=== PATIENT | female | born 1960 | race Caucasian/White ===

== ENCOUNTER → 2016-05-17 | Outpatient (CLI) | payer BC | LOC: MW.CHENT 15:21 | PROVIDERS: ATTEND Otolaryngology | DX: J32.9 Chronic sinusitis, unspecified (principal) | CPT/HCPCS: 36415; 82785; 82787; 86003; 86317 ==

== ENCOUNTER → 2016-06-29 | Outpatient (CLI) | payer BC ==
--- NOTE | 2016-06-30 13:55 | CR ---
EXAM DATE: 06/29/16 PATIENT'S AGE: 56 Patient: JOANNE CURRY Facility: [place], [place] Site . Site : 1960 Study: XRay Chest [id number]/25/2017 1:19:01 PM Ordering Physician: Glen Barajas Final Report: INDICATION: Dyspnea, unspecified TECHNIQUE: Chest 2 views. COMPARISON: 11/26/11 FINDINGS: Cardiovascular and mediastinum: Heart size and vasculature are normal in caliber and appearance. Mediastinum is within normal limits. Lungs and pleural spaces: Lungs are clear. No sign of infiltrate or mass. No sign of pleural effusion. No pneumothorax. Bones and soft tissues: No significant findings. IMPRESSION: Unremarkable chest. Dictated by: Ameya Pagan MD @ 06/30/2016 11:05:32 (Electronic Signature) Report Signed by Proxy and Original Signed Document filed in the Medical Record. [email or web address]
== END | disposition home or self-care (01) ==
LOC: MW.CHOBGYN 13:07
PROVIDERS: ATTEND Nurse Practitioner Women's Health
DX: R06.00 Dyspnea, unspecified (principal)
CPT/HCPCS: 71020; 71020-26

== ENCOUNTER → 2016-07-02 | Outpatient (CLI) | payer BC ==
--- NOTE | 2016-07-04 16:44 | MR ---
EXAM DATE: 07/02/16 PATIENT'S AGE: 56 Patient: JOANNE CURRY Facility: [place], [place] Site Site : 1960 Study: MRI Spine Lumbar [id number]/28/2017 11:30:34 AM Ordering Physician: CLARITA DOTSON Final Report: Indication: Sacral pain. Comparison: None. Technique: Sagittal T1, T2, and STIR sequences. Axial T1 and T2 weighted sequences. Findings: Normal vertebral body alignment. No fractures. No vertebral body loss of height. No spondylolisthesis. No ligamentous injury. Normal marrow signal. Normal conus terminates at T12-L1. T11-12, T12-L1 and L1-2: No spinal canal or neural foraminal narrowing. L2-3: No spinal canal or neural foraminal narrowing. L3-4: No spinal canal or neural foraminal narrowing. L4-5: Disc degeneration with posterior disc bulge. Flattening of the ventral thecal sac. No narrowing of spinal canal. No neural foraminal narrowing. Mild bilateral facet arthropathy. Small bilateral facet joint effusions. L5-S1: Disk degeneration with diffuse disc bulge. Superimposed shallow right paracentral to foraminal disk herniation and a right subarticular disc extrusion measuring approximately 4 mm in diameter with 3 mm of cephalad migration. No narrowing of spinal canal. The disc herniation contacts but does not frankly impinge upon the traversing right S1 nerve root. Mild narrowing of the bilateral neural foramina. Mild bilateral facet arthropathy. Normal paraspinal soft tissues. Additional sequences of the sacrum and coccyx in the axial plane demonstrates no gross fracture or osseous abnormality. No edema or inflammation within the presacral space. Impression: 1. Normal alignment. No fractures. No spondylolisthesis. 2. Lumbar spondylosis 3. At L4-5, posterior disc bulge. Otherwise, no spinal canal or neural foraminal narrowing. Small bilateral facet joint effusions 4. At L5-S1, disk degeneration with diffuse disc bulge. Shallow right paracentral-foraminal disk herniation and a small right subarticular disc extrusion. No narrowing of the spinal canal. Disc herniation contacts but does not impinge upon the traversing right S1 nerve root. Mild narrowing of the bilateral neural foraminal Dictated by Jair Eubanks MD @ Jul 03 2016 8:17AM (Electronic Signature) Report Signed by Proxy. MTDD
== END ==
LOC: MW.MRI 10:41
PROVIDERS: ATTEND Nurse Practitioner Women's Health
DX: M53.3 Sacrococcygeal disorders, not elsewhere classified (principal); R60.0 Localized edema
CPT/HCPCS: 72148; 72148-26

== ENCOUNTER 2019-04-05 17:53 | Emergency (ER) | payer BC ==
[2019-04-05] MEDS ORDERED: Sodium Chloride 0.9% 1,000 ML IV ONE (18:41)
[2019-04-05] MEDS ORDERED: Ondansetron 4 MG/2 ML SDV IVPUSH ONE (18:53)
--- NOTE | 2019-04-05 18:53 | EDM.PDOC ---
ED HPI GENERAL MEDICAL PROBLEM - General Chief Complaint: Gastrointestinal Problem Stated Complaint: vomiting Time Seen by Provider: 04/05/19 18:40 Source of Information: Reports: Patient History Limitations: Reports: No Limitations - History of Present Illness INITIAL COMMENTS - FREE TEXT/NARRATIVE: HISTORY AND PHYSICAL: History of present illness: Patient is a 59-year-old female who presents to the emergency room with complaints of nausea and vomiting x24 hours. She states last evening she started to have several bouts of vomiting and now has some generalized abdominal pain from retching. She mentions concerns as she is a type II diabetic and is concerned that her sugars are off. Patient denies any fever, chills, headache, change in vision, syncope or near syncope. Denies any chest pain, back pain, shortness of breath or cough. Denies any abdominal pain, nausea , vomiting, diarrhea, constipation or dysuria. Has not noted any blood in urine or stool. Patient has been eating and drinking appropriately. Review of systems: As per history of present illness and below otherwise all systems reviewed and negative. Past medical history: As per history of present illness and as reviewed below otherwise noncontributory. Surgical history: As per history of present illness and as reviewed below otherwise noncontributory. Social history: See social history for further information Family history: As per history of present illness and as reviewed below otherwise noncontributory. Physical exam: General: Well-developed and well-nourished 59-year-old female. Alert and oriented. Nontoxic-appearing and in no acute distress. HEENT: Atraumatic, normocephalic, pupils equal and reactive bilaterally, negative for conjunctival pallor or scleral icterus, mucous membranes moist, TMs normal bilaterally, throat clear, neck supple, nontender, trachea midline. No drooling or trismus noted. No meningeal signs. No hot potato voice noted. Lungs: Clear to auscultation, breath sounds equal bilaterally, chest nontender. Heart: S1S2, regular rate and rhythm without overt murmur Abdomen: Soft, nondistended, East, nontender. Negative for masses or hepatosplenomegaly. Negative for costovertebral tenderness. Pelvis: Stable nontender. Skin: Intact, warm, dry. No lesions or rashes noted. Extremities: Atraumatic, moves all extremities per self without difficulty or deficits, negative for cords or calf pain. Neurovascular unremarkable. Neuro: Awake, alert, oriented. Cranial nerves II through XII unremarkable. Cerebellum unremarkable. Motor and sensory unremarkable throughout. Exam nonfocal. Notes: She does have a slight leukocytosis. She states she does not have abdominal pain unless she is retching. She does still complain of some nausea. CT scan will be obtained. EKG was obtained as some of her medications does cause some QT prolongation with the antiemetics. CT is unremarkable. Patient does request something for home for her nausea as she is concerned it may return. I did make her aware of the leukocytosis without cause. We discussed signs and symptoms that would prompt her to return to the emergency room. She voices understanding and states she is comfortable being discharged. Supportive care measures were reviewed and discussed. Voices understanding and is agreeable to plan of care. Denies any further questions or concerns at this time. Diagnostics: CBC, CMP, UA, CT abdomen and pelvis, lipase Therapeutics: IV fluid, Zofran, Ativan Prescription: Phenergan suppository (#6) Impression: Nausea and vomiting Plan: 1. Gulf diet over the next 24 to 72 hours, advance as tolerated. Make sure you are drinking plenty of fluids to prevent dehydration. You can use the Phenergan suppositories 1 every 8 hours as needed. This medication may cause drowsiness so do not take it while driving her needing to be functioning outside of the house. 2. You can alternate Tylenol and ibuprofen as needed for pain. 3. As we discussed your labs and imaging were normal with the exception of a slightly elevated white count which is likely due to a stress response (not infection or illness). But if your abdominal pain should worsen, you develop fever, or new symptoms develop I do want you to follow-up with primary care or return to the ED as we discussed. Definitive disposition and diagnosis as appropriate pending reevaluation and review of above. Abdomen Pain Score (Numeric/FACES): 5 - Related Data Allergies Allergy/AdvReac Type Severity Reaction Status Date / Time Penicillins Allergy Rash Verified 04/05/19 18:23 morphine Allergy Itching Uncoded 04/05/19 18:23 Home Meds: Home Meds Aspirin [Adult Low Dose Aspirin EC] 81 mg PO DAILY 07/06/14 [History] Cholecalciferol (Vitamin D3) [Vitamin D3] 2 tab PO DAILY 07/06/14 [History] Enalapril Maleate 20 mg PO DAILY 07/06/14 [History] Fluticasone Furoate [Veramyst] 1 spray NASBOTH DAILY 07/06/14 [History] Timolol Maleate 1 drop EYEBOTH BID 07/06/14 [History] Potassium Chloride 10 meq PO DAILY 07/22/14 [History] Zolpidem [Ambien] 10 mg PO BEDTIME 07/22/14 [History] Acetaminophen [Tylenol] 325 mg PO NOW 11/15/15 [History] Amitriptyline [Elavil] 50 mg PO ONETIME 11/15/15 [History] Calcium Carbonate [Calcium] 600 mg PO DAILY 11/15/15 [History] Cyanocobalamin/FA/Pyridoxine [Folbic Tablet] 1 tab PO DAILY 11/15/15 [History] Escitalopram [Lexapro] 20 mg PO DAILY 11/15/15 [History] Magnesium Oxide 400 mg PO DAILY 11/15/15 [History] [place]-3/DHA/Epa/Fish Oil [Fish Oil] 1,500 mg PO DAILY 11/15/15 [History] Vitamin E 400 unit PO DAILY 11/15/15 [History] Fluticasone Propionate 9.9 ml NS DAILY 04/05/19 [History] Insulin Glarg,Human.Rec.Analog [Lantus] 44 unit SUBCUT DAILY 04/05/19 [History] L.acidoph,Paracasei, B.lactis [Probiotic] 1 each PO DAILY 04/05/19 [History] Magnesium Glycinate [Mag Glycinate] 200 mg PO BID 04/05/19 [History] Melatonin [Melatin] 3 mg PO DAILY 04/05/19 [History] Montelukast [Singulair] 20 mg PO DAILY 04/05/19 [History] Multivitamin [Multi-Day Vitamins] 1 tab PO DAILY 04/05/19 [History] Rosuvastatin [Crestor] 20 mg PO DAILY 04/05/19 [History] Past Medical History HEENT History: Reports: None Cardiovascular History: Reports: High Cholesterol, Hypertension Respiratory History: Reports: Other (See Below) Other Respiratory History: Lung biopsy Gastrointestinal History: Reports: None Genitourinary History: Reports: None 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: Reports: Musculoskeletal History: Reports: None Neurological History: Reports: None Psychiatric History: Reports: Anxiety Endocrine/Metabolic History: Reports: Diabetes, Type II Hematologic History: Reports: None Immunologic History: Reports: None Oncologic (Cancer) History: Reports: None Dermatologic History: Reports: None - Infectious Disease History Infectious Disease History: Reports: Chicken Pox, Measles, Mumps - Past Surgical History Head Surgeries/Procedures: Reports: None HEENT Surgical History: Reports: None GI Surgical History: Reports: Appendectomy, Other (See Below) Social & Family History - Family History Family Medical History: Noncontributory - Tobacco Use Smoking Status *Q: Never Smoker - Recreational Drug Use Recreational Drug Use: No ED ROS GENERAL - Review of Systems Review Of Systems: Comprehensive ROS is negative, except as noted in HPI. ED EXAM, RENAL/ - Physical Exam Exam: See Below (See dictation) Course - Vital Signs Last Recorded V/S: Last Vital Signs Temp 99.7 F 04/05/19 18:23 Pulse 66 04/05/19 19:45 Resp 20 04/05/19 19:45 BP 171/70 H 04/05/19 19:45 Pulse Ox 100 04/05/19 19:45 - Orders/Labs/Meds Orders: Active Orders 24 hr Category Date Time Status EKG Documentation Completion [RC] STAT Care 04/05/19 20:16 Active Sodium Chloride 0.9% [Normal Saline] 1,000 ml Med 04/05/19 18:41 Active IV STAT Medication Orders Sodium Chloride (Normal Saline) 1,000 mls @ 150 mls/hr IV STAT ONE Stop: 04/06/19 01:20 Last Admin: 04/05/19 18:53 Dose: 150 mls/hr Labs: Laboratory Tests 04/05/19 04/05/19 04/05/19 Range/Units 18:31 18:59 18:59 WBC 12.64 H (4.0-11.0) K/uL RBC 4.61 (4.30-5.90) M/uL Hgb 13.8 (12.0-16.0) g/dL Hct 39.7 (36.0-46.0) % MCV 86.1 (80.0-98.0) fL MCH 29.9 (27.0-32.0) pg MCHC 34.8 (31.0-37.0) g/dL RDW Std Deviation 46.4 (28.0-62.0) fl RDW Coeff of Travis 15 (11.0-15.0) % Plt Count 276 (150-400) K/uL MPV 10.00 (7.40-12.00) fL Neut % (Auto) 81.0 H (48.0-80.0) % Lymph % (Auto) 13.7 L (16.0-40.0) % [place] % (Auto) 5.1 (0.0-15.0) % Eos % (Auto) 0.0 (0.0-7.0) % Baso % (Auto) 0.2 (0.0-1.5) % Neut # (Auto) 10.2 H (1.4-5.7) K/uL Lymph # (Auto) 1.7 (0.6-2.4) K/uL [place] # (Auto) 0.7 (0.0-0.8) K/uL Eos # (Auto) 0.0 (0.0-0.7) K/uL Baso # (Auto) 0.0 (0.0-0.1) K/uL Nucleated RBC % 0.0 /100WBC Nucleated RBCs # 0 K/uL Sodium 138 (136-145) mmol/L Potassium 3.7 (3.5-5.1) mmol/L Chloride 101 (98-107) mmol/L Carbon Dioxide 25.9 (21.0-32.0) mmol/L BUN 15 (7.0-18.0) mg/dL Creatinine 0.8 (0.6-1.0) mg/dL Est Cr Clr Drug Dosing 59.15 mL/min Estimated GFR (MDRD) > 60.0 ml/min Glucose 150 H (74-106) mg/dL POC Glucose 144 H (60-110) mg/dL Calcium 9.3 (8.5-10.1) mg/dL Total Bilirubin 0.4 (0.2-1.0) mg/dL AST 20 (15-37) IU/L ALT 39 (14-63) IU/L Alkaline Phosphatase 105 (46-116) U/L Total Protein 7.7 (6.4-8.2) g/dL Albumin 3.9 (3.4-5.0) g/dL Globulin 3.8 (2.6-4.0) g/dL Albumin/Globulin Ratio 1.0 (0.9-1.6) Lipase 86 (73-393) U/L Urine Color Urine Appearance Urine pH (5.0-8.0) Ur Specific [place] (1.001-1.035) Urine Protein (NEGATIVE) mg/dL Urine Glucose (UA) (NEGATIVE) mg/dL Urine Ketones (NEGATIVE) mg/dL Urine Occult Blood (NEGATIVE) Urine Nitrite (NEGATIVE) Urine Bilirubin (NEGATIVE) Urine Urobilinogen (<2.0) EU/dL Ur Leukocyte Esterase (NEGATIVE) Urine RBC (0-2/HPF) Urine WBC (0-5/HPF) Ur Epithelial Cells (NONE-FEW) Urine Bacteria (NEGATIVE) 04/05/19 Range/Units 19:45 WBC (4.0-11.0) K/uL RBC (4.30-5.90) M/uL Hgb (12.0-16.0) g/dL Hct (36.0-46.0) % MCV (80.0-98.0) fL MCH (27.0-32.0) pg MCHC (31.0-37.0) g/dL RDW Std Deviation (28.0-62.0) fl RDW Coeff of Travis (11.0-15.0) % Plt Count (150-400) K/uL MPV (7.40-12.00) fL Neut % (Auto) (48.0-80.0) % Lymph % (Auto) (16.0-40.0) % [place] % (Auto) (0.0-15.0) % Eos % (Auto) (0.0-7.0) % Baso % (Auto) (0.0-1.5) % Neut # (Auto) (1.4-5.7) K/uL Lymph # (Auto) (0.6-2.4) K/uL [place] # (Auto) (0.0-0.8) K/uL Eos # (Auto) (0.0-0.7) K/uL Baso # (Auto) (0.0-0.1) K/uL Nucleated RBC % /100WBC Nucleated RBCs # K/uL Sodium (136-145) mmol/L Potassium (3.5-5.1) mmol/L Chloride (98-107) mmol/L Carbon Dioxide (21.0-32.0) mmol/L BUN (7.0-18.0) mg/dL Creatinine (0.6-1.0) mg/dL Est Cr Clr Drug Dosing mL/min Estimated GFR (MDRD) ml/min Glucose (74-106) mg/dL POC Glucose (60-110) mg/dL Calcium (8.5-10.1) mg/dL Total Bilirubin (0.2-1.0) mg/dL AST (15-37) IU/L ALT (14-63) IU/L Alkaline Phosphatase (46-116) U/L Total Protein (6.4-8.2) g/dL Albumin (3.4-5.0) g/dL Globulin (2.6-4.0) g/dL Albumin/Globulin Ratio (0.9-1.6) Lipase (73-393) U/L Urine Color YELLOW Urine Appearance CLEAR Urine pH 7.0 (5.0-8.0) Ur Specific [place] 1.015 (1.001-1.035) Urine Protein 30 H (NEGATIVE) mg/dL Urine Glucose (UA) NEGATIVE (NEGATIVE) mg/dL Urine Ketones 40 H (NEGATIVE) mg/dL Urine Occult Blood NEGATIVE (NEGATIVE) Urine Nitrite NEGATIVE (NEGATIVE) Urine Bilirubin NEGATIVE (NEGATIVE) Urine Urobilinogen 0.2 (<2.0) EU/dL Ur Leukocyte Esterase NEGATIVE (NEGATIVE) Urine RBC 0-3 (0-2/HPF) Urine WBC 0-3 (0-5/HPF) Ur Epithelial Cells RARE (NONE-FEW) Urine Bacteria RARE (NEGATIVE) Meds: Medications Generic Name Dose Route Start Last Admin Trade Name Sveta PRN Reason Stop Dose Admin Sodium Chloride 1,000 mls @ 150 mls/hr 04/05/19 18:41 04/05/19 18:53 Normal Saline IV 04/06/19 01:20 150 mls/hr STAT ONE Administration Discontinued Medications Generic Name Dose Route Start Last Admin Trade Name Sveta PRN Reason Stop Dose Admin Iopamidol 100 ml 04/05/19 20:30 04/05/19 20:31 Isovue Multipack-370 (76%) IVPUSH 04/05/19 20:31 100 ml ONETIME ONE Administration Lorazepam 1 mg 04/05/19 21:07 Ativan IVPUSH 04/05/19 21:08 ONETIME ONE Ondansetron HCl 4 mg 04/05/19 18:53 04/05/19 18:58 Zofran IVPUSH 04/05/19 18:54 4 mg ONETIME ONE Administration Promethazine HCl 25 mg 04/05/19 21:03 Phenergan IM 04/05/19 21:04 ONETIME ONE Departure - Departure Time of Disposition: 21:16 Disposition: Home, Self-Care 01 Clinical Impression: Nausea and vomiting Qualifiers: Vomiting type: unspecified Vomiting Intractability: non-intractable Qualified Code(s): R11.2 - Nausea with vomiting, unspecified - Discharge Information Instructions: Nausea and Vomiting, Adult, Mh[place]-[id number] Referrals: Fallon Wagner DIVIDING MACHINE OPERATOR HELPER [Primary Care Provider] - Forms: ED Department Discharge Additional Instructions: The following information is given to patients seen in the emergency department who are being discharged to home. This information is to outline your options for follow-up care. We provide all patients seen in our emergency department with a follow-up referral. The need for follow-up, as well as the timing and circumstances, are variable depending upon the specifics of your emergency department visit. If you don't have a primary care physician on staff, we will provide you with a referral. We always advise you to contact your personal physician following an emergency department visit to inform them of the circumstance of the visit and for follow-up with them and/or the need for any referrals to a consulting specialist. The emergency department will also refer you to a specialist when appropriate. This referral assures that you have the opportunity for follow-up care with a specialist. All of these measure are taken in an effort to provide you with optimal care, which includes your follow-up. Under all circumstances we always encourage you to contact your private physician who remains a resource for coordinating your care. When calling for follow-up care, please make the office aware that this follow-up is from your recent emergency room visit. If for any reason you are refused follow-up, please contact the [facility] Emergency Department at and asked to speak to the emergency department charge nurse. [facility] Primary [facility] [address] [place] [id number] [facility] [address] [place] [address] 1. Gulf diet over the next 24 to 72 hours, advance as tolerated. Make sure you are drinking plenty of fluids to prevent dehydration. You can use the Phenergan suppositories 1 every 8 hours as needed. This medication may cause drowsiness so do not take it while driving her needing to be functioning outside of the house. 2. You can alternate Tylenol and ibuprofen as needed for pain. 3. As we discussed your labs and imaging were normal with the exception of a slightly elevated white count which is likely due to a stress response (not infection or illness). But if your abdominal pain should worsen, you develop fever, or new symptoms develop I do want you to follow-up with primary care or return to the ED as we discussed. Sepsis Event Note - Evaluation Sepsis Screening Result: No Definite Risk - Focused Exam Vital Signs: Vital Signs Temp Pulse Resp BP Pulse Ox 04/05/19 19:45 66 20 171/70 H 100 04/05/19 18:23 99.7 F 64 16 172/64 H 97 Date Exam was Performed: 04/05/19 Time Exam was Performed: 21:29 - My Orders Last 24 Hours: My Active Orders 04/05/19 18:41 Sodium Chloride 0.9% [Normal Saline] 1,000 ml IV STAT 04/05/19 20:16 EKG Documentation Completion [RC] STAT - Assessment/Plan Last 24 Hours: My Active Orders 04/05/19 18:41 Sodium Chloride 0.9% [Normal Saline] 1,000 ml IV STAT 04/05/19 20:16 EKG Documentation Completion [RC] STAT
[2019-04-05 19:46] VITALS: BP 171/70; PULSE 66
[2019-04-05 19:46] LABS: BLOOD UREA NITROGEN,BUN 15 mg/dL (7.0-18.0); CARBON DIOXIDE,CO2 25.9 mmol/L (21.0-32.0); CHLORIDE,CL 101 mmol/L (98-107); GLUCOSE RANDOM 150 mg/dL (74-106); LIPASE 86 U/L (73-393); POTASSIUM,K 3.7 mmol/L (3.5-5.1); SODIUM,NA 138 mmol/L (136-145)
[2019-04-05] MEDS ORDERED: Iopamidol 755 MG/ML 200 ML Multipack Bottle IVPUSH ONE (20:30)
--- NOTE | 2019-04-05 21:02 | CT ---
CT abdomen and pelvis Technique: Multiple axial sections were obtained from above the dome of the diaphragm inferiorly through the pubic symphysis. Intravenous contrast was utilized. No oral contrast has been given. Findings: Visualized lung bases show nothing acute. Liver contains no focal parenchymal abnormality. Small hiatal hernia is noted. Prior gastric surgery is noted. Spleen appears within normal limits. Calcified gallstone is seen within the gallbladder measuring 6.8 mm. Pancreas appears within normal limits. Adrenal glands show no nodule. Aorta shows no aneurysm. No retroperitoneal adenopathy or mesenteric abnormalities are seen. No pelvic mass or adenopathy is seen. No free fluid or inflammatory change is appreciated. Appendix is not seen with certainty. Bone window settings were reviewed which shows scattered degenerative change throughout the spine. No acute osseous finding is appreciated. Impression: 1. Findings as described above. 2. Nothing acute is seen on CT study of the abdomen and pelvis. Diagnostic code #2 Study was dictated in [place] Standard Time
[2019-04-05] MEDS ORDERED: Promethazine 25 MG/ML SDV IM ONE (21:03)
[2019-04-05] MEDS ORDERED: LORazepam 2 MG/ML SDV IVPUSH ONE (21:07)
== END 2019-04-05 21:44 | disposition home or self-care (01) ==
LOC: MW.ED 17:53
DX: R11.2 Nausea with vomiting, unspecified (principal); E11.9 Type 2 diabetes mellitus without complications; I10 Essential (primary) hypertension; E78.00 Pure hypercholesterolemia, unspecified; F41.9 Anxiety disorder, unspecified; Z79.4 Long term (current) use of insulin; Z79.82 Long term (current) use of aspirin; Z79.899 Other long term (current) drug therapy; Z88.0 Allergy status to penicillin; Z88.5 Allergy status to narcotic agent
CPT/HCPCS: 36415; 74177; 80053; 81001; 82962; 83690; 85025; 87804; 96361; 96374; 96375; 99284; J2060; J2405; J7030; Q9967; 93005

== ENCOUNTER 2019-11-17 11:38 | Emergency (ER) | payer BC, OTHER ==
[2019-11-17] MEDS ORDERED: Ondansetron 4 MG/2 ML SDV IVPUSH ONE (12:00)
[2019-11-17] MEDS ORDERED: Sodium Chloride 0.9% 2.5 ML Syringe FLUSH PRN (12:00)
[2019-11-17] MEDS ORDERED: Sodium Chloride 0.9% 1,000 ML IV ONE (12:00)
[2019-11-17] MEDS ORDERED: Sodium Chloride 0.9% 10 ML Syringe FLUSH PRN (12:00)
--- NOTE | 2019-11-17 12:04 | EDM.PDOC ---
ED HPI GENERAL MEDICAL PROBLEM - General Chief Complaint: Gastrointestinal Problem Stated Complaint: FEVER/VOMITING Time Seen by Provider: 11/17/19 11:45 Source of Information: Reports: Patient - History of Present Illness INITIAL COMMENTS - FREE TEXT/NARRATIVE: History of present illness: 59-year-old female presenting with nausea and fevers for the last 3 days. T-max 101. She has been taking Tylenol and ibuprofen alternating to try to control her fever. However she has been having some difficulty keeping them down and she has been so nauseated and having dry heaves. No recent vomiting though she was vomiting previously. Prior to 3 days ago she had been feeling fine. She did have a coronavirus swab done 5 days ago which was negative just because she wanted to, not because she was having any symptoms or any sick exposures or contacts. She has not noticed any when she has been in contact with having been ill and she reports that she pretty much stays at home and has not been going out anywhere. Review of systems: As per history of present illness and below otherwise all systems reviewed and negative. Past medical history: As per history of present illness and as reviewed below otherwise noncontributory. Sarcoidosis, hypertension, diabetes, cholesterol Surgical history: As per history of present illness and as reviewed below otherwise noncontributory. Social history: No reported history of drug or alcohol abuse. No smoking Family history: As per history of present illness and as reviewed below otherwise noncontributory. Physical exam: GEN: no acute distress, well appearing HEENT: Atraumatic, normocephalic, mucous membranes moist, mild pharyngeal erythema, no pharyngeal or tonsillar enlargement or exudate. Neck: supple, nontender, trachea midline. No lymphadenopathy Lungs: No respiratory distress. Heart: RRR Abdomen: Soft, nondistended, nontender in all 4 quadrants. No rebound or guarding. Back: nontender Extremities: Atraumatic. Neurovascularly intact. Neuro: Awake, alert, oriented. Neuro Exam nonfocal. Skin: warm, dry, no lesions Diagnostics: Labs, x-ray, EKG, UA, strep swab, COVID swab Therapeutics: IV fluids, magnesium, Zofran, Reglan, Benadryl Definitive disposition and diagnosis as appropriate pending reevaluation and review of above. - Related Data Allergies Allergy/AdvReac Type Severity Reaction Status Date / Time Penicillins Allergy Rash Verified 11/17/19 11:54 morphine Allergy Itching Uncoded 11/17/19 11:54 Home Meds: Home Meds Aspirin [Adult Low Dose Aspirin EC] 81 mg PO DAILY 07/06/14 [History] Cholecalciferol (Vitamin D3) [Vitamin D3] 2 tab PO DAILY 07/06/14 [History] Enalapril Maleate 20 mg PO DAILY 07/06/14 [History] Timolol Maleate 1 drop EYEBOTH BID 07/06/14 [History] Potassium Chloride 10 meq PO DAILY 07/22/14 [History] Zolpidem [Ambien] 10 mg PO BEDTIME 07/22/14 [History] Acetaminophen [Tylenol] 325 mg PO NOW 11/15/15 [History] Amitriptyline [Elavil] 50 mg PO ONETIME 11/15/15 [History] Calcium Carbonate [Calcium] 600 mg PO DAILY 11/15/15 [History] Cyanocobalamin/FA/Pyridoxine [Folbic Tablet] 1 tab PO DAILY 11/15/15 [History] Escitalopram [Lexapro] 20 mg PO DAILY 11/15/15 [History] Magnesium Oxide 400 mg PO DAILY 11/15/15 [History] Adams-3/DHA/Epa/Fish Oil [Fish Oil] 1,500 mg PO DAILY 11/15/15 [History] Vitamin E 400 unit PO DAILY 11/15/15 [History] Fluticasone Propionate 9.9 ml NS DAILY 04/05/19 [History] Insulin Glarg,Human.Rec.Analog [Lantus] 30 unit SUBCUT DAILY 04/05/19 [History] L.acidoph,Paracasei, B.lactis [Probiotic] 1 each PO DAILY 04/05/19 [History] Magnesium Glycinate [Mag Glycinate] 200 mg PO BID 04/05/19 [History] Melatonin [Melatin] 3 mg PO DAILY 04/05/19 [History] Montelukast [Singulair] 20 mg PO DAILY 04/05/19 [History] Multivitamin [Multi-Day Vitamins] 1 tab PO DAILY 04/05/19 [History] Rosuvastatin [Crestor] 20 mg PO DAILY 04/05/19 [History] Azelastine [Astelin Nasal Soln] 1 inhalation DESTINY BID 11/17/19 [History] Magnesium Glycinate [Mag Glycinate] 200 mg PO DAILY 11/17/19 [History] Metoclopramide HCl [Reglan] 10 mg PO Q8HR PRN #15 tablet 11/17/19 [Rx] Ozempic 0.5 mg SQ WEEKLY 11/17/19 [History] Past Medical History HEENT History: Reports: None Cardiovascular History: Reports: High Cholesterol, Hypertension Respiratory History: Reports: Other (See Below) Other Respiratory History: Lung biopsy Gastrointestinal History: Reports: None Genitourinary History: Reports: None [employer] History: Reports: Musculoskeletal History: Reports: None Neurological History: Reports: None Psychiatric History: Reports: Anxiety Endocrine/Metabolic History: Reports: Diabetes, Type II Hematologic History: Reports: None Immunologic History: Reports: None Oncologic (Cancer) History: Reports: None Dermatologic History: Reports: None - Infectious Disease History Infectious Disease History: Reports: Chicken Pox, Mumps - Past Surgical History Head Surgeries/Procedures: Reports: None HEENT Surgical History: Reports: None Cardiovascular Surgical History: Reports: None Respiratory Surgical History: Reports: None GI Surgical History: Reports: Appendectomy, Other (See Below) Endocrine Surgical History: Reports: None Neurological Surgical History: Reports: None Dermatological Surgical History: Reports: None Social & Family History - Family History Family Medical History: Noncontributory - Tobacco Use Smoking Status *Q: Never Smoker Second Hand Smoke Exposure: No - Caffeine Use Caffeine Use: Reports: Coffee - Recreational Drug Use Recreational Drug Use: No ED ROS GENERAL - Review of Systems Review Of Systems: See Below (See HPI) ED EXAM, GI/ABD - Physical Exam Exam: See Below (See HPI) EKG INTERPRETATION EKG Interpretation Comments: EKG performed today at 12:25 PM, sinus rhythm, rate 71, QTc 479, no acute ischemia, no STEMI. Interpreted by me. Course - Vital Signs Text/Narrative:: Fevers, T-max 101 with associated nausea but no abdominal pain, no diarrhea, no cough or shortness of breath or chest pain. Also has some mild sore throat. Work-up largely unremarkable. Mildly elevated serum WBC, low magnesium level, chest x-ray negative, COVID swab negative, strep swab negative, UA with no acute urinary infection and abdominal exam unremarkable with no tenderness and no rebound or guarding. Given Zofran which did not give great symptomatic improvement but felt much better after Reglan and prefers to attempt to go home. I did discuss at length with the patient her symptoms and with shared decision- making she preferred not to go forth with any other additional imaging including ultrasound or CT scan of the abdomen. She has previously had an appendicitis and appendectomy as well as gastric bypass. She does report that she has had bowel obstruction from adhesions in the past but does not have any similar symptoms today as she has had at that time and she had predominantly abdominal pain and vomiting. She has not had any abdominal pain at all in the last 3 days. Therefore she prefers not to have another CT scan or ultrasound at this time but does agree to return to the ER immediately if she develops any worsening pain or worsening fevers. Last Recorded V/S: Last Vital Signs Temp 96.7 F L 11/17/19 11:54 Pulse 71 11/17/19 14:40 Resp 14 11/17/19 14:40 BP 182/87 H 11/17/19 14:40 Pulse Ox 97 11/17/19 14:40 - Orders/Labs/Meds Orders: Active Orders 24 hr Category Date Time Status EKG Documentation Completion [RC] STAT Care 11/17/19 12:00 Active CULTURE STREP A CONFIRMATION [] Stat Lab 11/17/19 12:08 Results STREP SCRN A RAPID W CULT CONF [RM] Stat Lab 11/17/19 12:08 Results Sodium Chloride 0.9% [Saline Flush] Med 11/17/19 12:00 Active 10 ml FLUSH ASDIRECTED PRN Sodium Chloride 0.9% [Saline Flush] Med 11/17/19 12:00 Active 2.5 ml FLUSH ASDIRECTED PRN Saline Lock Insert [OM.PC] Stat Oth 11/17/19 12:00 Ordered Medication Orders Sodium Chloride (Saline Flush) 10 ml FLUSH ASDIRECTED PRN PRN Reason: Keep Vein Open Last Admin: 11/17/19 12:42 Dose: 10 ml Documented by: KRYSTLE Sodium Chloride (Saline Flush) 2.5 ml FLUSH ASDIRECTED PRN PRN Reason: Keep Vein Open Last Admin: 11/17/19 12:42 Dose: 2.5 ml Documented by: KRYSTLE Labs: Laboratory Tests 11/17/19 11/17/19 11/17/19 Range/Units 11:52 12:18 12:18 WBC 11.96 H (4.0-11.0) K/uL RBC 5.13 (4.30-5.90) M/uL Hgb 15.7 (12.0-16.0) g/dL Hct 44.6 (36.0-46.0) % MCV 86.9 (80.0-98.0) fL MCH 30.6 (27.0-32.0) pg MCHC 35.2 (31.0-37.0) g/dL RDW Std Deviation 39.8 (28.0-62.0) fl RDW Coeff of Travis 13 (11.0-15.0) % Plt Count 316 (150-400) K/uL MPV 10.00 (7.40-12.00) fL Neut % (Auto) 69.4 (48.0-80.0) % Lymph % (Auto) 22.9 (16.0-40.0) % Benzie % (Auto) 6.9 (0.0-15.0) % Eos % (Auto) 0.2 (0.0-7.0) % Baso % (Auto) 0.6 (0.0-1.5) % Neut # (Auto) 8.3 H (1.4-5.7) K/uL Lymph # (Auto) 2.7 H (0.6-2.4) K/uL Benzie # (Auto) 0.8 (0.0-0.8) K/uL Eos # (Auto) 0.0 (0.0-0.7) K/uL Baso # (Auto) 0.1 (0.0-0.1) K/uL Sodium 132 L (136-145) mmol/L Potassium 3.9 (3.5-5.1) mmol/L Chloride 95 L (98-107) mmol/L Carbon Dioxide 25.2 (21.0-32.0) mmol/L BUN 16 (7.0-18.0) mg/dL Creatinine 1.0 (0.6-1.0) mg/dL Est Cr Clr Drug Dosing 47.32 mL/min Estimated GFR (MDRD) 56.6 ml/min Glucose 184 H (74-106) mg/dL POC Glucose 177 H (60-110) mg/dL Calcium 9.2 (8.5-10.1) mg/dL Magnesium 1.7 L (1.8-2.4) mg/dL Total Bilirubin 0.8 (0.2-1.0) mg/dL AST 29 (15-37) IU/L ALT 58 (14-63) IU/L Alkaline Phosphatase 109 (46-116) U/L Troponin I 0.055 (0.000-0.056) ng/mL Total Protein 8.1 (6.4-8.2) g/dL Albumin 4.3 (3.4-5.0) g/dL Globulin 3.8 (2.6-4.0) g/dL Albumin/Globulin Ratio 1.1 (0.9-1.6) Lipase (73-393) U/L Urine Color Urine Appearance Urine pH (5.0-8.0) Ur Specific [place] (1.001-1.035) Urine Protein (NEGATIVE) mg/dL Urine Glucose (UA) (NEGATIVE) mg/dL Urine Ketones (NEGATIVE) mg/dL Urine Occult Blood (NEGATIVE) Urine Nitrite (NEGATIVE) Urine Bilirubin (NEGATIVE) Urine Urobilinogen (<2.0) EU/dL Ur Leukocyte Esterase (NEGATIVE) Urine RBC (0-2/HPF) Urine WBC (0-5/HPF) Ur Epithelial Cells (NONE-FEW) Amorphous Sediment (NEGATIVE) Urine Bacteria (NEGATIVE) Urine Mucus (NONE-MOD) COVID-19 (ABIDA) (NEGATIVE) 11/17/19 11/17/19 11/17/19 Range/Units 12:18 12:28 13:20 WBC (4.0-11.0) K/uL RBC (4.30-5.90) M/uL Hgb (12.0-16.0) g/dL Hct (36.0-46.0) % MCV (80.0-98.0) fL MCH (27.0-32.0) pg MCHC (31.0-37.0) g/dL RDW Std Deviation (28.0-62.0) fl RDW Coeff of Travis (11.0-15.0) % Plt Count (150-400) K/uL MPV (7.40-12.00) fL Neut % (Auto) (48.0-80.0) % Lymph % (Auto) (16.0-40.0) % Benzie % (Auto) (0.0-15.0) % Eos % (Auto) (0.0-7.0) % Baso % (Auto) (0.0-1.5) % Neut # (Auto) (1.4-5.7) K/uL Lymph # (Auto) (0.6-2.4) K/uL Benzie # (Auto) (0.0-0.8) K/uL Eos # (Auto) (0.0-0.7) K/uL Baso # (Auto) (0.0-0.1) K/uL Sodium (136-145) mmol/L Potassium (3.5-5.1) mmol/L Chloride (98-107) mmol/L Carbon Dioxide (21.0-32.0) mmol/L BUN (7.0-18.0) mg/dL Creatinine (0.6-1.0) mg/dL Est Cr Clr Drug Dosing mL/min Estimated GFR (MDRD) ml/min Glucose (74-106) mg/dL POC Glucose (60-110) mg/dL Calcium (8.5-10.1) mg/dL Magnesium (1.8-2.4) mg/dL Total Bilirubin (0.2-1.0) mg/dL AST (15-37) IU/L ALT (14-63) IU/L Alkaline Phosphatase (46-116) U/L Troponin I (0.000-0.056) ng/mL Total Protein (6.4-8.2) g/dL Albumin (3.4-5.0) g/dL Globulin (2.6-4.0) g/dL Albumin/Globulin Ratio (0.9-1.6) Lipase 130 (73-393) U/L Urine Color YELLOW Urine Appearance CLEAR Urine pH 7.0 (5.0-8.0) Ur Specific [place] 1.020 (1.001-1.035) Urine Protein 30 H (NEGATIVE) mg/dL Urine Glucose (UA) NEGATIVE (NEGATIVE) mg/dL Urine Ketones TRACE H (NEGATIVE) mg/dL Urine Occult Blood NEGATIVE (NEGATIVE) Urine Nitrite NEGATIVE (NEGATIVE) Urine Bilirubin NEGATIVE (NEGATIVE) Urine Urobilinogen 1.0 (<2.0) EU/dL Ur Leukocyte Esterase TRACE H (NEGATIVE) Urine RBC 0-1 (0-2/HPF) Urine WBC 2-4 (0-5/HPF) Ur Epithelial Cells RARE (NONE-FEW) Amorphous Sediment RARE (NEGATIVE) Urine Bacteria FEW (NEGATIVE) Urine Mucus RARE (NONE-MOD) COVID-19 (ABIDA) NEGATIVE (NEGATIVE) Meds: Medications Generic Name Dose Route Start Last Admin Trade Name Sveta PRN Reason Stop Dose Admin Sodium Chloride 10 ml 11/17/19 12:00 11/17/19 12:42 Saline Flush FLUSH 10 ml ASDIRECTED PRN Administration Keep Vein Open Sodium Chloride 2.5 ml 11/17/19 12:00 11/17/19 12:42 Saline Flush FLUSH 2.5 ml ASDIRECTED PRN Administration Keep Vein Open Discontinued Medications Generic Name Dose Route Start Last Admin Trade Name Freq PRN Reason Stop Dose Admin Diphenhydramine HCl 25 mg 11/17/19 13:35 11/17/19 13:42 Benadryl IVPUSH 11/17/19 13:36 25 mg ONETIME ONE Administration Sodium Chloride 1,000 mls @ 999 mls/hr 11/17/19 12:00 11/17/19 12:31 Normal Saline IV 11/17/19 13:00 999 mls/hr .Bolus ONE Administration Magnesium Sulfate 2 gm/ Premix 50 mls @ 50 mls/hr 11/17/19 13:30 11/17/19 13:30 IV 11/17/19 14:29 50 mls/hr ONETIME ONE Administration Metoclopramide HCl 10 mg 11/17/19 13:35 11/17/19 13:42 Reglan IVPUSH 11/17/19 13:36 10 mg ONETIME ONE Administration Ondansetron HCl 4 mg 11/17/19 12:00 11/17/19 12:32 Zofran IVPUSH 11/17/19 12:01 4 mg ONETIME ONE Administration - Re-Assessments/Exams Free Text/Narrative Re-Assessment/Exam: 11/17/19 13:35 Patient is still feeling nauseated and has not had much relief after the Zofran. I did discuss all lab results with the patient. Strep swab still pending. She has not had any worsening of her symptoms and has not developed any newfound areas of pain or any other infectious symptoms. Discussed plan for Reglan/Benadryl and will assess symptoms after that. 11/17/19 15:16 After having received the Reglan and Benadryl and a full fluids and magnesium, the patient is now feeling much better. She reports she is no longer feeling nauseated and feels much more comfortable and would like to be discharged home. She does not have any pain. We did discuss at length her symptoms, what to watch out for and when to return. We did discuss options for intra-abdominal imaging including ultrasound and CT scan, however as she is not having any abdominal pain and has not had any diarrhea and was not tender on examination, she prefers to defer these tests at this time but does agree to return to the ER if any worsening symptoms or if any of those symptoms develop for imaging at that time. Will prescribe Reglan prescription as that did seem to help her much more than the Zofran. Departure - Departure Time of Disposition: 15:17 Disposition: Home, Self-Care 01 Clinical Impression: Nausea, Dehydration, Hypomagnesemia Fever Qualifiers: Encounter type: initial encounter - Discharge Information Prescriptions: Metoclopramide HCl [Reglan] 10 mg PO Q8HR PRN #15 tablet PRN Reason: Nausea Instructions: Hypomagnesemia, Nausea and Vomiting, Adult, [id number], Dehydration, Adult, [id number], Rehydration, Adult, Nausea, Adult, [id number], Fever, Adult, [id number] Referrals: Fallon Wagner [employer] [Primary Care Provider] - 2 Days Forms: ED Department Discharge Additional Instructions: It is unclear what is causing your fever and nausea today. You do not appear to have any signs of any severe infection. Your magnesium level was slightly low and this has been repleted here. Your strep swab, COVID swab and chest x-ray were all negative as well as her urine. Please drink plenty of fluids. If you feel that you are nauseous or vomiting and cannot keep down fluids you may take the Reglan medication though only take this as needed. If you develop any side effects after taking this medication stop immediately. If you do develop severe abdominal pain or diarrhea or any other concerning symptoms, please return to the emergency department we can perform a CT scan or ultrasound at that time as we had discussed and as you prefer to defer at this time. Please follow-up with your primary care physician. The following information is given to patients seen in the emergency department who are being discharged to home. This information is to outline your options for follow-up care. We provide all patients seen in our emergency department with a follow-up referral. The need for follow-up, as well as the timing and circumstances, are variable depending upon the specifics of your emergency department visit. If you don't have a primary care physician on staff, we will provide you with a referral. We always advise you to contact your personal physician following an emergency department visit to inform them of the circumstance of the visit and for follow-up with them and/or the need for any referrals to a consulting specialist. The emergency department will also refer you to a specialist when appropriate. This referral assures that you have the opportunity for follow-up care with a specialist. All of these measure are taken in an effort to provide you with optimal care, which includes your follow-up. Under all circumstances we always encourage you to contact your private physician who remains a resource for coordinating your care. When calling for follow-up care, please make the office aware that this follow-up is from your recent emergency room visit. If for any reason you are refused follow-up, please contact the [facility] Emergency Department at and asked to speak to the emergency department charge nurse. Sepsis Event Note (ED) - Evaluation Sepsis Screening Result: No Definite Risk - Focused Exam Vital Signs: Vital Signs Temp Pulse Resp BP Pulse Ox 11/17/19 14:40 71 14 182/87 H 97 11/17/19 13:44 78 15 184/112 H 98 11/17/19 11:54 96.7 F L 84 16 156/99 H 99 - My Orders Last 24 Hours: My Active Orders 11/17/19 12:00 EKG Documentation Completion [RC] STAT Sodium Chloride 0.9% [Saline Flush] 10 ml FLUSH ASDIRECTED PRN Sodium Chloride 0.9% [Saline Flush] 2.5 ml FLUSH ASDIRECTED PRN Saline Lock Insert [OM.PC] Stat 11/17/19 12:08 CULTURE STREP A CONFIRMATION [RM] Stat STREP SCRN A RAPID W CULT CONF [RM] Stat - Assessment/Plan Last 24 Hours: My Active Orders 11/17/19 12:00 EKG Documentation Completion [RC] STAT Sodium Chloride 0.9% [Saline Flush] 10 ml FLUSH ASDIRECTED PRN Sodium Chloride 0.9% [Saline Flush] 2.5 ml FLUSH ASDIRECTED PRN Saline Lock Insert [OM.PC] Stat 11/17/19 12:08 CULTURE STREP A CONFIRMATION [RM] Stat STREP SCRN A RAPID W CULT CONF [RM] Stat
--- NOTE | 2019-11-17 12:31 | CR ---
Chest: Portable view of the chest was obtained. Comparison: Prior chest x-ray of 06/29/16. Heart size and mediastinum are normal. Lungs are clear with no acute parenchymal change. Bony structures show slight endplate spurring within the spine. No acute osseous finding is appreciated. Impression: 1. Nothing acute is appreciated on portable chest x-ray. Diagnostic code #2 This report was dictated in MDT
[2019-11-17 13:02] LABS: CARBON DIOXIDE,CO2 25.2 mmol/L (21.0-32.0); POTASSIUM,K 3.9 mmol/L (3.5-5.1)
[2019-11-17] MEDS ORDERED: Magnesium Sulfate (4.06 MEQ/ML) 5 GM/10 ML SDV IV ONE (13:05)
[2019-11-17] MEDS ORDERED: Magnesium Sulfate/Water 2 GM in Premix Bag 1 BAG IV ONE (13:30)
[2019-11-17] MEDS ORDERED: Metoclopramide 10 MG/2 ML SDV IVPUSH ONE (13:35)
[2019-11-17] MEDS ORDERED: diphenhydrAMINE 50 MG/ML SDV IVPUSH ONE (13:35)
[2019-11-17 14:52] VITALS: BP 182/87; PULSE 71
== END 2019-11-17 15:34 | disposition home or self-care (01) ==
LOC: MW.ED 11:38
DX: E86.0 Dehydration (principal); E83.42 Hypomagnesemia; R50.9 Fever, unspecified; R11.0 Nausea; I10 Essential (primary) hypertension; E11.9 Type 2 diabetes mellitus without complications; E78.00 Pure hypercholesterolemia, unspecified; F41.9 Anxiety disorder, unspecified; Z20.828 Contact with and (suspected) exposure to other viral communicable diseases; Z88.0 Allergy status to penicillin; Z88.5 Allergy status to narcotic agent; Z79.82 Long term (current) use of aspirin; Z79.899 Other long term (current) drug therapy; Z90.49 Acquired absence of other specified parts of digestive tract
CPT/HCPCS: 71045; 80053; 81001; 82962; 83690; 83735; 84484; 85025; 87081; 87635; 87880; 93005; 96361; 96365; 96375; 99284; J1200; J2405; J2765; J3475; J7030; U0002

== ENCOUNTER 2019-11-20 18:35 | Emergency (ER) | payer BC, OTHER ==
[2019-11-20] MEDS ORDERED: Sodium Chloride 0.9% 2.5 ML Syringe FLUSH PRN (20:03)
[2019-11-20] MEDS ORDERED: Ondansetron 4 MG/2 ML SDV IVPUSH ONE (20:03)
[2019-11-20] MEDS ORDERED: Sodium Chloride 0.9% 10 ML Syringe FLUSH PRN (20:03)
[2019-11-20] MEDS ORDERED: Sodium Chloride 0.9% 1,000 ML IV ONE (20:03)
--- NOTE | 2019-11-20 20:09 | EDM.PDOC ---
ED HPI GENERAL MEDICAL PROBLEM - General Chief Complaint: Gastrointestinal Problem Stated Complaint: VOMITTING Time Seen by Provider: 11/20/19 19:42 Source of Information: Reports: Patient - History of Present Illness INITIAL COMMENTS - FREE TEXT/NARRATIVE: 59F PMHx several abdominal surgeries, h/o SBO, sarcoidosis presents for N/V. Patient was seen here 2 days ago for same. Denies abdominal pain. Does have headache. Was doing well at home on reglan but notes it made her have muscle jerks so she stopped taking it. Nausea worse with food. No urinary symptoms. Had fevers over weekend but not in last couple of days. 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: Reports: Acetaminophen headache Pain Score (Numeric/FACES): 6 - Related Data Allergies Allergy/AdvReac Type Severity Reaction Status Date / Time Penicillins Allergy Rash Verified 11/20/19 19:40 morphine Allergy Itching Uncoded 11/20/19 19:40 Home Meds: Home Meds Aspirin [Adult Low Dose Aspirin EC] 81 mg PO DAILY 07/06/14 [History] Cholecalciferol (Vitamin D3) [Vitamin D3] 2 tab PO DAILY 07/06/14 [History] Enalapril Maleate 20 mg PO DAILY 07/06/14 [History] Timolol Maleate 1 drop EYEBOTH BID 07/06/14 [History] Potassium Chloride 10 meq PO DAILY 07/22/14 [History] Zolpidem [Ambien] 10 mg PO BEDTIME 07/22/14 [History] Acetaminophen [Tylenol] 325 mg PO NOW 11/15/15 [History] Amitriptyline [Elavil] 50 mg PO ONETIME 11/15/15 [History] Calcium Carbonate [Calcium] 600 mg PO DAILY 11/15/15 [History] Cyanocobalamin/FA/Pyridoxine [Folbic Tablet] 1 tab PO DAILY 11/15/15 [History] Escitalopram [Lexapro] 20 mg PO DAILY 11/15/15 [History] Magnesium Oxide 400 mg PO DAILY 11/15/15 [History] Bruno-3/DHA/Epa/Fish Oil [Fish Oil] 1,500 mg PO DAILY 11/15/15 [History] Vitamin E 400 unit PO DAILY 11/15/15 [History] Fluticasone Propionate 9.9 ml NS DAILY 04/05/19 [History] Insulin Glarg,Human.Rec.Analog [Lantus] 30 unit SUBCUT DAILY 04/05/19 [History] L.acidoph,Paracasei, B.lactis [Probiotic] 1 each PO DAILY 04/05/19 [History] Magnesium Glycinate [Mag Glycinate] 200 mg PO BID 04/05/19 [History] Melatonin [Melatin] 3 mg PO DAILY 04/05/19 [History] Montelukast [Singulair] 20 mg PO DAILY 04/05/19 [History] Multivitamin [Multi-Day Vitamins] 1 tab PO DAILY 04/05/19 [History] Rosuvastatin [Crestor] 20 mg PO DAILY 04/05/19 [History] Azelastine [Astelin Nasal Soln] 1 inhalation DESTINY BID 11/17/19 [History] Magnesium Glycinate [Mag Glycinate] 200 mg PO DAILY 11/17/19 [History] Metoclopramide HCl [Reglan] 10 mg PO Q8HR PRN #15 tablet 11/17/19 [Rx] Ozempic 0.5 mg SQ WEEKLY 11/17/19 [History] Past Medical History HEENT History: Reports: None Cardiovascular History: Reports: High Cholesterol, Hypertension Respiratory History: Reports: Other (See Below) Other Respiratory History: Lung biopsy Gastrointestinal History: Reports: None Genitourinary History: Reports: None CAUL PULLER History: Reports: Musculoskeletal History: Reports: None Neurological History: Reports: None Psychiatric History: Reports: Anxiety Endocrine/Metabolic History: Reports: Diabetes, Type II Insulin Pump Model and Safe And Vault Installer: None Hematologic History: Reports: None Immunologic History: Reports: None Oncologic (Cancer) History: Reports: None Dermatologic History: Reports: None - Infectious Disease History Infectious Disease History: Reports: None - Past Surgical History Head Surgeries/Procedures: Reports: None HEENT Surgical History: Reports: None Cardiovascular Surgical History: Reports: None Respiratory Surgical History: Reports: None GI Surgical History: Reports: Appendectomy, Other (See Below) Endocrine Surgical History: Reports: None Neurological Surgical History: Reports: None Dermatological Surgical History: Reports: None Social & Family History - Family History Family Medical History: Noncontributory - Tobacco Use Smoking Status *Q: Never Smoker - Caffeine Use Caffeine Use: Reports: None - Recreational Drug Use Recreational Drug Use: No ED ROS GENERAL - Review of Systems Review Of Systems: Comprehensive ROS is negative, except as noted in HPI. ED EXAM, GI/ABD - Physical Exam Exam: See Below Exam Limited By: No Limitations General Appearance: Alert, WD/WN, No Apparent Distress Ears: Normal External Exam Nose: Normal Inspection Throat/Mouth: Normal Voice, No Airway Compromise Head: Atraumatic, Normocephalic Neck: Normal Inspection Respiratory/Chest: No Respiratory Distress, Lungs Clear, Normal Breath Sounds, No Accessory Muscle Use Cardiovascular: Normal Peripheral Pulses GI/Abdominal Exam: Soft, Non-Tender, No Organomegaly, No Distention Extremities: Normal Inspection Neurological: Alert Psychiatric: Normal Affect, Normal Mood Skin Exam: Warm, Dry, Intact, Normal Color EKG INTERPRETATION EKG Date: 11/20/19 Time: 20:32 Rhythm: NSR Rate (Beats/Min): 63 [place]: Normal P-Wave: Present QRS: Normal ST-T: Normal QT: Normal OK/PQ Interval: 140 Course - Vital Signs Last Recorded V/S: Last Vital Signs Temp 98.5 F 11/20/19 21:14 Pulse 69 11/20/19 21:14 Resp 18 11/20/19 21:14 BP 150/72 H 11/20/19 21:14 Pulse Ox 98 11/20/19 21:14 - Orders/Labs/Meds Orders: Active Orders 24 hr Category Date Time Status EKG Documentation Completion [RC] STAT Care 11/20/19 20:03 Active CORONAVIRUS COVID-19 PCR PHL Stat Lab 11/20/19 21:18 Ordered Sodium Chloride 0.9% [Saline Flush] Med 11/20/19 20:03 Active 10 ml FLUSH ASDIRECTED PRN Sodium Chloride 0.9% [Saline Flush] Med 11/20/19 20:03 Active 2.5 ml FLUSH ASDIRECTED PRN Saline Lock Insert [OM.PC] Stat Oth 11/20/19 20:03 Ordered Medication Orders Sodium Chloride (Saline Flush) 10 ml FLUSH ASDIRECTED PRN PRN Reason: Keep Vein Open Sodium Chloride (Saline Flush) 2.5 ml FLUSH ASDIRECTED PRN PRN Reason: Keep Vein Open Labs: Laboratory Tests 11/20/19 11/20/19 11/20/19 Range/Units 20:15 20:15 20:17 WBC 11.28 H (4.0-11.0) K/uL RBC 4.82 (4.30-5.90) M/uL Hgb 14.7 (12.0-16.0) g/dL Hct 41.7 (36.0-46.0) % MCV 86.5 (80.0-98.0) fL MCH 30.5 (27.0-32.0) pg MCHC 35.3 (31.0-37.0) g/dL RDW Std Deviation 40.4 (28.0-62.0) fl RDW Coeff of Travis 13 (11.0-15.0) % Plt Count 299 (150-400) K/uL MPV 10.30 (7.40-12.00) fL Neut % (Auto) 79.9 (48.0-80.0) % Lymph % (Auto) 16.4 (16.0-40.0) % [place] % (Auto) 3.1 (0.0-15.0) % Eos % (Auto) 0.4 (0.0-7.0) % Baso % (Auto) 0.2 (0.0-1.5) % Neut # (Auto) 9.0 H (1.4-5.7) K/uL Lymph # (Auto) 1.9 (0.6-2.4) K/uL [place] # (Auto) 0.4 (0.0-0.8) K/uL Eos # (Auto) 0.0 (0.0-0.7) K/uL Baso # (Auto) 0.0 (0.0-0.1) K/uL Nucleated RBC % 0.0 /100WBC Nucleated RBCs # 0 K/uL Sodium 131 L (136-145) mmol/L Potassium 3.9 (3.5-5.1) mmol/L Chloride 97 L (98-107) mmol/L Carbon Dioxide 19.4 L (21.0-32.0) mmol/L BUN 24 H (7.0-18.0) mg/dL Creatinine 0.7 (0.6-1.0) mg/dL Est Cr Clr Drug Dosing 67.59 mL/min Estimated GFR (MDRD) > 60.0 ml/min Glucose 183 H (74-106) mg/dL Calcium 8.6 (8.5-10.1) mg/dL Magnesium 1.6 L (1.8-2.4) mg/dL Total Bilirubin 0.6 (0.2-1.0) mg/dL AST 27 (15-37) IU/L ALT 53 (14-63) IU/L Alkaline Phosphatase 103 (46-116) U/L Troponin I 0.116 H* (0.000-0.056) ng/mL Total Protein 7.7 (6.4-8.2) g/dL Albumin 4.2 (3.4-5.0) g/dL Globulin 3.5 (2.6-4.0) g/dL Albumin/Globulin Ratio 1.2 (0.9-1.6) Lipase 129 (73-393) U/L Urine Color YELLOW Urine Appearance CLEAR Urine pH 6.0 (5.0-8.0) Ur Specific [place] 1.025 (1.001-1.035) Urine Protein NEGATIVE (NEGATIVE) mg/dL Urine Glucose (UA) NEGATIVE (NEGATIVE) mg/dL Urine Ketones 40 H (NEGATIVE) mg/dL Urine Occult Blood NEGATIVE (NEGATIVE) Urine Nitrite NEGATIVE (NEGATIVE) Urine Bilirubin NEGATIVE (NEGATIVE) Urine Urobilinogen 0.2 (<2.0) EU/dL Ur Leukocyte Esterase NEGATIVE (NEGATIVE) Meds: Medications Generic Name Dose Route Start Last Admin Trade Name Freq PRN Reason Stop Dose Admin Sodium Chloride 10 ml 11/20/19 20:03 Saline Flush FLUSH ASDIRECTED PRN Keep Vein Open Sodium Chloride 2.5 ml 11/20/19 20:03 Saline Flush FLUSH ASDIRECTED PRN Keep Vein Open Discontinued Medications Generic Name Dose Route Start Last Admin Trade Name Freq PRN Reason Stop Dose Admin Aspirin 324 mg 11/20/19 21:01 11/20/19 21:26 Aspirin PO 11/20/19 21:02 324 mg ONETIME ONE Administration Diphenhydramine HCl 25 mg 11/20/19 21:22 11/20/19 21:29 Benadryl IVPUSH 11/20/19 21:23 25 mg ONETIME ONE Administration Enoxaparin Sodium 80 mg 11/20/19 21:22 11/20/19 21:33 Lovenox SUBCUT 11/20/19 21:23 80 mg ONETIME ONE Administration Sodium Chloride 1,000 mls @ 999 mls/hr 11/20/19 20:03 11/20/19 20:28 Normal Saline IV 11/20/19 21:03 999 mls/hr .Bolus ONE Administration Iopamidol 100 ml 11/20/19 20:44 11/20/19 20:44 Isovue-370 (76%) IVPUSH 11/20/19 20:45 100 ml ONETIME ONE Administration Metoclopramide HCl 10 mg 11/20/19 21:22 11/20/19 21:29 Reglan IVPUSH 11/20/19 21:23 10 mg ONETIME ONE Administration Ondansetron HCl 4 mg 11/20/19 20:03 11/20/19 20:28 Zofran IVPUSH 11/20/19 20:04 4 mg ONETIME ONE Administration Tetracaine HCl 1 ml 11/20/19 21:20 11/20/19 21:29 Tetracaine 0.5% Steri-Unit Kim EYEBOTH 11/20/19 21:21 1 ml ASDIRECTED ONE Administration - Re-Assessments/Exams Free Text/Narrative Re-Assessment/Exam: 11/20/19 20:08 Will repeat labs, will get CT A/P since symptoms aren't improving, if normal and patient is feeling better will d/c with GI referral 11/20/19 22:14 Dr. Shultz agrees to admit patient to his service at [facility] Departure - Departure Time of Disposition: 22:15 Disposition: DC/Tfer to Other 70 Condition: Good Clinical Impression: Elevated troponin - Discharge Information Referrals: Fallon Wagner ADMINISTRATIVE LAW JUDGE [Primary Care Provider] - Forms: ED Department Discharge Sepsis Event Note (ED) - Evaluation Sepsis Screening Result: No Definite Risk - Focused Exam Vital Signs: Vital Signs Temp Pulse Resp BP Pulse Ox 11/20/19 21:14 98.5 F 69 18 150/72 H 98 11/20/19 19:40 97.1 F 68 18 138/78 98 - My Orders Last 24 Hours: My Active Orders 11/20/19 20:03 EKG Documentation Completion [RC] STAT Sodium Chloride 0.9% [Saline Flush] 10 ml FLUSH ASDIRECTED PRN Sodium Chloride 0.9% [Saline Flush] 2.5 ml FLUSH ASDIRECTED PRN Saline Lock Insert [OM.PC] Stat 11/20/19 21:18 CORONAVIRUS COVID-19 PCR PHL Stat - Assessment/Plan Last 24 Hours: My Active Orders 11/20/19 20:03 EKG Documentation Completion [RC] STAT Sodium Chloride 0.9% [Saline Flush] 10 ml FLUSH ASDIRECTED PRN Sodium Chloride 0.9% [Saline Flush] 2.5 ml FLUSH ASDIRECTED PRN Saline Lock Insert [OM.PC] Stat 11/20/19 21:18 CORONAVIRUS COVID-19 PCR PHL Stat
[2019-11-20] MEDS ORDERED: Iopamidol 755 Mg/ML 100 ML Bottle IVPUSH ONE (20:44)
[2019-11-20 20:57] LABS: BLOOD UREA NITROGEN,BUN 24 mg/dL (7.0-18.0); CARBON DIOXIDE,CO2 19.4 mmol/L (21.0-32.0); CHLORIDE,CL 97 mmol/L (98-107); GLUCOSE RANDOM 183 mg/dL (74-106); LIPASE 129 U/L (73-393); POTASSIUM,K 3.9 mmol/L (3.5-5.1); SODIUM,NA 131 mmol/L (136-145)
[2019-11-20] MEDS ORDERED: Aspirin 81 MG Tab.Chew PO ONE (21:01)
--- NOTE | 2019-11-20 21:07 | CT ---
CT abdomen and pelvis Technique: Multiple axial sections were obtained from above the dome of the diaphragm inferiorly through the pubic symphysis. Intravenous contrast was utilized. No oral contrast has been given. Comparison: Prior CT abdomen and pelvis exam of 04/05/19. Findings: Visualized lung bases show nothing acute. Liver contains no focal abnormality. Spleen appears normal in size. Small hiatal hernia is noted with prior gastric surgery. Sludge or layering gallstones appears to be present within the gallbladder. Small calcified gallstone is also noted within the gallbladder. Kidneys show symmetric contrast enhancement without hydronephrosis or mass. Adrenal glands show no nodule. Pancreas shows no discrete abnormality. Aorta shows no aneurysm. No retroperitoneal adenopathy or mesenteric abnormalities are seen. No pelvic mass or adenopathy is identified. Appendix not visualized. No bowel dilatation is appreciated. No free fluid or inflammatory change is appreciated. Bone window settings were reviewed. Mild scattered degenerative change is noted within the spine. No acute osseous finding is appreciated. Impression: 1. Small hiatal hernia with prior gastric surgery. 2. Calcified gallstone within the gallbladder. Layering material is seen within the gallbladder either due to sludge or noncalcified layering gallstones. 3. Nothing acute is otherwise appreciated on CT study of the abdomen and pelvis. Diagnostic code #2 This report was dictated in MDT
[2019-11-20] MEDS ORDERED: Tetracaine HCl/PF 0.5% 4 ML Bottle EYEBOTH ONE (21:20)
[2019-11-20] MEDS ORDERED: diphenhydrAMINE 50 MG/ML SDV IVPUSH ONE (21:22)
[2019-11-20] MEDS ORDERED: Metoclopramide 10 MG/2 ML SDV IVPUSH ONE ×2 (21:22→22:50)
[2019-11-20] MEDS ORDERED: Enoxaparin 100 MG/1 ML Syringe SUBCUT ONE (21:22)
[2019-11-20 22:31] VITALS: BP 168/72; PULSE 86
[2019-11-20] MEDS ORDERED: LORazepam 2 MG/ML SDV IVPUSH ONE (22:50)
== END 2019-11-20 23:20 | disposition other institution (70) ==
LOC: MW.ED 18:35
DX: R79.89 Other specified abnormal findings of blood chemistry (principal); R11.2 Nausea with vomiting, unspecified; R51 Headache; E11.9 Type 2 diabetes mellitus without complications; I10 Essential (primary) hypertension; E78.00 Pure hypercholesterolemia, unspecified; F41.9 Anxiety disorder, unspecified; Z88.5 Allergy status to narcotic agent; Z88.0 Allergy status to penicillin; Z79.82 Long term (current) use of aspirin; Z79.4 Long term (current) use of insulin; Z79.899 Other long term (current) drug therapy; Z20.828 Contact with and (suspected) exposure to other viral communicable diseases
CPT/HCPCS: 36415; 74177; 80053; 81003; 83690; 83735; 84484; 85025; 87635; 93005; 96361; 96372; 96374; 96375; 96376; 99285; A9270; J1200; J1650; J2060; J2405; J2765; J7030; Q9967; U0002

== ENCOUNTER 2020-10-17 17:37 | Emergency (ER) | payer BC ==
[2020-10-17] MEDS ORDERED: Sodium Chloride 0.9% 1,000 ML IV ONE (17:39)
--- NOTE | 2020-10-17 17:42 | EDM.PDOC ---
ED HPI GENERAL MEDICAL PROBLEM - General Chief Complaint: Neuro Symptoms/Deficits Stated Complaint: SYNCOPY Time Seen by Provider: 10/17/20 17:38 Source of Information: Reports: Patient History Limitations: Reports: No Limitations - History of Present Illness INITIAL COMMENTS - FREE TEXT/NARRATIVE: HISTORY AND PHYSICAL: History of present illness: Patient is a 60-year-old female who presents to the emergency room after a syncopal event. Patient states she has not been sleeping well over the past few nights and decided to take a half of a sleeping pill this afternoon. She was able to take a couple hour nap. Prior to arrival she had finished an alcoholic beverage at a friend's house and went to the refrigerator when she felt lightheaded and "passed out". She states that he felt he stood up too quickly and syncopized. Denies hitting her head, denies headache or neurological symptoms. She states she feels fine now and offers no current complaints or concerns. Patient denies any fever, chills, headache, change in vision, chest pain, back pain, shortness of breath or cough. Denies any abdominal pain, nausea, vomiting, diarrhea, constipation or dysuria. Has not noted any blood in urine or stool. Patient has been eating and drinking appropriately. Past medical history of type 2 diabetes, hypertension, small bowel obstruction and sarcoidosis. Review of systems: As per history of present illness and below otherwise all systems reviewed and negative. Past medical history: As per history of present illness and as reviewed below otherwise noncontributory. Surgical history: As per history of present illness and as reviewed below otherwise noncontributory. Social history: See social history for further information Family history: As per history of present illness and as reviewed below otherwise noncontributory. Physical exam: General: Well developed and well nourished 60 year old female. Alert and orientated x 3. Nontoxic in appearance and in no acute distress. Vital signs are stable and have been reviewed by me. Nursing notes were reviewed. HEENT: No obvious injury, nontender to touch, normocephalic, pupils equal and reactive bilaterally, negative for conjunctival pallor or scleral icterus, mucous membranes moist, TMs normal bilaterally, throat clear, neck supple, nontender, trachea midline. No drooling or trismus noted. No meningeal signs. No hot potato voice noted. Lungs: Clear to auscultation bilaterally. No wheezes, rales, or rhonchi. Chest nontender. Normal work of breathing, no accessory muscles used. Heart: S1S2, regular rate and rhythm without overt murmur, gallops, or rubs. No JVD. No peripheral edema Abdomen: Soft, nondistended, nontender. Normoactive bowel sounds. Negative for masses or costovertebral tenderness. Skin: Intact, warm, dry. No lesions or rashes noted. Hematologic: No petechiae or purpra. Mucosa appropriate color and normal nail bed color and refill. Extremities: Moves all extremities per self without difficulty or deficits, negative for cords or calf pain. Neurovascular unremarkable. Neuro: Awake, alert, oriented. Cranial nerves II through XII unremarkable. Cerebellum unremarkable. Motor and sensory unremarkable throughout. Exam nonfocal. Psychiatric: Mood and affect are appropriate. Normal thought process. Answering questions appropriately. Notes: *This patient was seen and evaluated during the 2019 SARS-CoV-2 novel coronavirus pandemic period. Community viral transmission is ongoing at time of this encounter and the emergency department is operating under pandemic response procedures. Patient is a 60-year-old female who presents to the emergency room after syncopal event. Patient states she felt like she stood up too quickly and she could feel herself feeling like she was going to pass out prior to the syncopal event. She states other than not having slept well over the past few days she has been overall healthy and offers no complaints or concerns. My physical exam is unremarkable. Her vital signs are stable. We will do basic lab work. She declines head CT, I feel this is reasonable at this time. No concerning findings on lab work at this time. We did discuss discharge versus admission. She states she would prefer to be discharged home which I feel is acceptable. Vital signs have remained stable. She is asymptomatic. After interviewing the patient it does sound like she had a vasovagal episode. I have talked with the patient about today's findings, in addition to providing specific details for plan of care. Reassessment at the time of disposition demonstrates that the patient is in no acute distress. The patient is stable for discharge, counseling was provided and we discussed in great detail signs and symptoms that would prompt them to return to the Emergency Department. Medication, follow up and supportive care measures were reviewed and discussed. Voices understanding and is agreeable to plan of care. Denies any further questions or concerns at this time. Diagnostics: CBC, CMP, UA, troponin, EKG Therapeutics: IV fluid Prescription: None Impression: Syncope, vasovagal Plan: 1. You were evaluated today on an emergent basis. Your labs and EKG are within normal limits. Please change positions from lying to standing slower, to prevent another syncopal episode. Increase your oral fluids. Small frequent meals throughout the day. 2. You can alternate Tylenol and ibuprofen as needed for pain and fever management. 3. We encourage you to follow up with your primary care provider and/or recommended specialist in the next few days for re-evaluation and further care/management. 4. If your symptoms should worsen, new symptoms develop or any of the signs and symptoms we discussed should arise please return to the emergency room or call 911 (if needed). Definitive disposition and diagnosis as appropriate pending reevaluation and review of above. - Related Data Allergies Allergy/AdvReac Type Severity Reaction Status Date / Time metoclopramide [From Reglan] Allergy Other Verified 10/17/20 17:38 Penicillins Allergy Rash Verified 11/20/19 19:40 morphine Allergy Itching Uncoded 11/20/19 19:40 Home Meds: Home Meds Aspirin [Adult Low Dose Aspirin EC] 81 mg PO DAILY 07/06/14 [History] Cholecalciferol (Vitamin D3) [Vitamin D3] 2 tab PO DAILY 07/06/14 [History] Enalapril Maleate 20 mg PO DAILY 07/06/14 [History] Timolol Maleate 1 drop EYEBOTH BID 07/06/14 [History] Potassium Chloride 10 meq PO DAILY 07/22/14 [History] Zolpidem [Ambien] 10 mg PO BEDTIME 07/22/14 [History] Acetaminophen [Tylenol] 325 mg PO NOW 11/15/15 [History] Amitriptyline [Elavil] 50 mg PO ONETIME 11/15/15 [History] Calcium Carbonate [Calcium] 600 mg PO DAILY 11/15/15 [History] Cyanocobalamin/FA/Pyridoxine [Folbic Tablet] 1 tab PO DAILY 11/15/15 [History] Escitalopram [Lexapro] 20 mg PO DAILY 11/15/15 [History] Magnesium Oxide 400 mg PO DAILY 11/15/15 [History] [place]-3/DHA/Epa/Fish Oil [Fish Oil] 1,500 mg PO DAILY 11/15/15 [History] Vitamin E 400 unit PO DAILY 11/15/15 [History] Fluticasone Propionate 9.9 ml NS DAILY 04/05/19 [History] Insulin Glarg,Human.Rec.Analog [Lantus] 30 unit SUBCUT DAILY 04/05/19 [History] L.acidoph,Paracasei, B.lactis [Probiotic] 1 each PO DAILY 04/05/19 [History] Magnesium Glycinate [Mag Glycinate] 200 mg PO BID 04/05/19 [History] Melatonin [Melatin] 3 mg PO DAILY 04/05/19 [History] Montelukast [Singulair] 20 mg PO DAILY 04/05/19 [History] Multivitamin [Multi-Day Vitamins] 1 tab PO DAILY 04/05/19 [History] Rosuvastatin [Crestor] 20 mg PO DAILY 04/05/19 [History] Azelastine [Astelin Nasal Soln] 1 inhalation DESTINY BID 11/17/19 [History] Magnesium Glycinate [Mag Glycinate] 200 mg PO DAILY 11/17/19 [History] Metoclopramide HCl [Reglan] 10 mg PO Q8HR PRN #15 tablet 11/17/19 [Rx] Ozempic 0.5 mg SQ WEEKLY 11/17/19 [History] Past Medical History HEENT History: Reports: None Cardiovascular History: Reports: High Cholesterol, Hypertension Respiratory History: Reports: Other (See Below) Other Respiratory History: Lung biopsy Gastrointestinal History: Reports: None Genitourinary History: Reports: None 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: Musculoskeletal History: Reports: None Neurological History: Reports: None Psychiatric History: Reports: Anxiety Endocrine/Metabolic History: Reports: Diabetes, Type II Insulin Pump Model and Shearing Machine Tender: None Hematologic History: Reports: None Immunologic History: Reports: None Oncologic (Cancer) History: Reports: None Dermatologic History: Reports: None - Infectious Disease History Infectious Disease History: Reports: None - Past Surgical History Head Surgeries/Procedures: Reports: None HEENT Surgical History: Reports: None Cardiovascular Surgical History: Reports: None Respiratory Surgical History: Reports: None GI Surgical History: Reports: Appendectomy, Other (See Below) Endocrine Surgical History: Reports: None Neurological Surgical History: Reports: None Dermatological Surgical History: Reports: None Social & Family History - Family History Family Medical History: No Pertinent Family History - Caffeine Use Caffeine Use: Reports: None ED ROS GENERAL - Review of Systems Review Of Systems: Comprehensive ROS is negative, except as noted in HPI. ED EXAM, GENERAL - Physical Exam Exam: See Below (See dictation) Course - Vital Signs Last Recorded V/S: Last Vital Signs Temp 97.5 F 10/17/20 17:39 Pulse 98 10/17/20 17:39 Resp 18 10/17/20 17:39 BP 136/76 10/17/20 17:39 Pulse Ox 95 10/17/20 17:39 - Orders/Labs/Meds Orders: Active Orders 24 hr Category Date Time Status EKG Documentation Completion [RC] STAT Care 10/17/20 17:38 Active Orthostatic Vital Signs [RC] ASDIRECTED Care 10/17/20 17:38 Active Labs: Laboratory Tests 10/17/20 10/17/20 10/17/20 Range/Units 17:47 17:47 18:04 WBC 8.08 (4.0-11.0) K/uL RBC 4.44 (4.30-5.90) M/uL Hgb 13.8 (12.0-16.0) g/dL Hct 40.1 (36.0-46.0) % MCV 90.3 (80.0-98.0) fL MCH 31.1 (27.0-32.0) pg MCHC 34.4 (31.0-37.0) g/dL RDW Std Deviation 43.9 (28.0-62.0) fl RDW Coeff of Travis 13 (11.0-15.0) % Plt Count 276 (150-400) K/uL MPV 10.30 (7.40-12.00) fL Neut % (Auto) 61.3 (48.0-80.0) % Lymph % (Auto) 30.4 (16.0-40.0) % Terrell % (Auto) 5.4 (0.0-15.0) % Eos % (Auto) 1.9 (0.0-7.0) % Baso % (Auto) 1.0 (0.0-1.5) % Neut # (Auto) 5.0 (1.4-5.7) K/uL Lymph # (Auto) 2.5 H (0.6-2.4) K/uL Terrell # (Auto) 0.4 (0.0-0.8) K/uL Eos # (Auto) 0.2 (0.0-0.7) K/uL Baso # (Auto) 0.1 (0.0-0.1) K/uL Nucleated RBC % 0.0 /100WBC Nucleated RBCs # 0 K/uL Sodium 141 (136-145) mmol/L Potassium 4.3 (3.5-5.1) mmol/L Chloride 104 (98-107) mmol/L Carbon Dioxide 22.6 (21.0-32.0) mmol/L BUN 18 (7.0-18.0) mg/dL Creatinine 0.8 (0.6-1.0) mg/dL Est Cr Clr Drug Dosing 58.41 mL/min Estimated GFR (MDRD) > 60.0 ml/min Glucose 157 H (74-106) mg/dL Calcium 8.7 (8.5-10.1) mg/dL Total Bilirubin 0.2 (0.2-1.0) mg/dL AST 284 H (15-37) IU/L ALT 194 H (14-63) IU/L Alkaline Phosphatase 156 H (46-116) U/L Troponin I < 0.050 (0.000-0.056) ng/mL Total Protein 7.1 (6.4-8.2) g/dL Albumin 3.9 (3.4-5.0) g/dL Globulin 3.2 (2.6-4.0) g/dL Albumin/Globulin Ratio 1.2 (0.9-1.6) Urine Color YELLOW Urine Appearance CLEAR Urine pH 5.5 (5.0-8.0) Ur Specific [place] 1.010 (1.001-1.035) Urine Protein NEGATIVE (NEGATIVE) mg/dL Urine Glucose (UA) 500 H (NEGATIVE) mg/dL Urine Ketones TRACE H (NEGATIVE) mg/dL Urine Occult Blood NEGATIVE (NEGATIVE) Urine Nitrite NEGATIVE (NEGATIVE) Urine Bilirubin NEGATIVE (NEGATIVE) Urine Urobilinogen 0.2 (<2.0) EU/dL Ur Leukocyte Esterase NEGATIVE (NEGATIVE) Meds: Medications Discontinued Medications Generic Name Dose Route Start Last Admin Trade Name Freq PRN Reason Stop Dose Admin Sodium Chloride 1,000 mls @ 999 mls/hr 10/17/20 17:39 10/17/20 18:06 Normal Saline IV 10/17/20 18:39 999 mls/hr STAT ONE Administration Departure - Departure Time of Disposition: 18:43 Disposition: Home, Self-Care 01 Clinical Impression: Syncope Qualifiers: Syncope type: vasovagal syncope Qualified Code(s): R55 - Syncope and collapse - Discharge Information Instructions: Syncope, [id number] Referrals: PCP,None [Primary Care Provider] - Forms: ED Department Discharge Additional Instructions: The following information is given to patients seen in the emergency department who are being discharged to home. This information is to outline your options for follow-up care. We provide all patients seen in our emergency department with a follow-up referral. The need for follow-up, as well as the timing and circumstances, are variable depending upon the specifics of your emergency department visit. If you don't have a primary care physician on staff, we will provide you with a referral. We always advise you to contact your personal physician following an emergency department visit to inform them of the circumstance of the visit and for follow-up with them and/or the need for any referrals to a consulting specialist. The emergency department will also refer you to a specialist when appropriate. This referral assures that you have the opportunity for follow-up care with a specialist. All of these measure are taken in an effort to provide you with optimal care, which includes your follow-up. Under all circumstances we always encourage you to contact your private physician who remains a resource for coordinating your care. When calling for follow-up care, please make the office aware that this follow-up is from your recent emergency room visit. If for any reason you are refused follow-up, please contact the [facility] Emergency Department at and asked to speak to the emergency department charge nurse. [facility] [address] [place] [id number] [facility] [address] [place] [id number] Thank you for choosing the [facility] emergency department in [place] for your medical needs today. It was a pleasure caring for you. Today you were seen in the emergency department for syncope. 1. You were evaluated today on an emergent basis. Your labs and EKG are within normal limits. Please change positions from lying to standing slower, to prevent another syncopal episode. Increase your oral fluids. Small frequent meals throughout the day. 2. You can alternate Tylenol and ibuprofen as needed for pain and fever management. 3. We encourage you to follow up with your primary care provider and/or recommended specialist in the next few days for re-evaluation and further care/management. 4. If your symptoms should worsen, new symptoms develop or any of the signs and symptoms we discussed should arise please return to the emergency room or call 911 (if needed). Sepsis Event Note (ED) - Focused Exam Vital Signs: Vital Signs Temp Pulse Resp BP Pulse Ox 10/17/20 17:39 97.5 F 98 18 136/76 95 - My Orders Last 24 Hours: My Active Orders 10/17/20 17:38 EKG Documentation Completion [RC] STAT Orthostatic Vital Signs [RC] ASDIRECTED - Assessment/Plan Last 24 Hours: My Active Orders 10/17/20 17:38 EKG Documentation Completion [RC] STAT Orthostatic Vital Signs [RC] ASDIRECTED
--- NOTE | 2020-10-17 18:03 | PCM.EKG ---
#1 Interpretation EKG Interpretation Comments: EKG date October 17, 2020 5:37 PM EKG: As interpreted by ER physician: Barbara: Nonspecific ST-T wave abnormalities Normal axis No evidence of ST elevation MN Normal sinus rhythm heart rate of 95
[2020-10-17 18:37] LABS: BLOOD UREA NITROGEN,BUN 18 mg/dL (7.0-18.0); CARBON DIOXIDE,CO2 22.6 mmol/L (21.0-32.0); CHLORIDE,CL 104 mmol/L (98-107); GLUCOSE RANDOM 157 mg/dL (74-106); POTASSIUM,K 4.3 mmol/L (3.5-5.1); SODIUM,NA 141 mmol/L (136-145)
[2020-10-17 19:02] VITALS: BP 117/63; PULSE 77
== END 2020-10-17 18:52 | disposition home or self-care (01) ==
LOC: MW.ED 17:37
DX: R55 Syncope and collapse (principal); E78.00 Pure hypercholesterolemia, unspecified; I10 Essential (primary) hypertension; E11.9 Type 2 diabetes mellitus without complications; Z88.0 Allergy status to penicillin; Z88.5 Allergy status to narcotic agent; Z88.8 Allergy status to other drugs, medicaments and biological substances; Z79.82 Long term (current) use of aspirin; Z79.4 Long term (current) use of insulin; Z79.899 Other long term (current) drug therapy
CPT/HCPCS: 36415; 80053; 81003; 84484; 85025; 93005; 99284; J7030

== ENCOUNTER 2022-02-16 08:00 | Day surgery (SDC) | payer BC ==
[~2022-02-16 08:00] MED LIST: Lactated Ringers 1,000 ML IV SCH; Propofol 200 MG/20 ML SDV ONE; Sodium Chloride 0.9% 10 ML Syringe FLUSH PRN; Sodium Chloride 0.9% 2.5 ML Syringe FLUSH PRN; Sodium Chloride 0.9% 20 ML SDV IV PRN
[2022-02-16 10:22] VITALS: BP 112/54; PULSE 67
== END 2022-02-16 10:05 | disposition home or self-care (01) ==
LOC: MW.SDS 08:00
PROVIDERS: ATTEND Surgery
DX: Z12.11 Encounter for screening for malignant neoplasm of colon (principal); K80.20 Calculus of gallbladder without cholecystitis without obstruction; F32.A Depression, unspecified; E11.69 Type 2 diabetes mellitus with other specified complication; E78.5 Hyperlipidemia, unspecified; I10 Essential (primary) hypertension; E61.1 Iron deficiency; G47.00 Insomnia, unspecified; E55.9 Vitamin D deficiency, unspecified; F41.9 Anxiety disorder, unspecified; Z88.6 Allergy status to analgesic agent; Z88.0 Allergy status to penicillin; Z88.8 Allergy status to other drugs, medicaments and biological substances; Z79.899 Other long term (current) drug therapy; Z98.890 Other specified postprocedural states; Z90.49 Acquired absence of other specified parts of digestive tract; Z90.710 Acquired absence of both cervix and uterus; Z79.82 Long term (current) use of aspirin
CPT/HCPCS: 45378; 82947; J2704; J7120

== ENCOUNTER 2022-12-22 05:47 | Emergency (ER) | payer BC ==
[2022-12-22] MEDS ORDERED: Ondansetron 4 MG/2 ML SDV IVPUSH ONE (06:06)
[2022-12-22] MEDS ORDERED: Sodium Chloride 0.9% 1,000 ML IV ONE (06:06)
[2022-12-22] MEDS ORDERED: Ketorolac 30 MG/ML SDV IVPUSH ONE (06:06)
[2022-12-22 06:31] LABS: HEMATOCRIT 43.1 % (37.0-47.0); HEMOGLOBIN 15.2 g/dL (12.0-16.0); MEAN CORPUSCULAR HEMOGLOBIN 31.2 pg (28.0-32.0); MEAN CORPUSCULAR HGB CONC 35.3 g/dL (32.0-36.0); MEAN CORPUSCULAR VOLUME 88.5 fL (83.0-99.0); PLATELET COUNT,PLT 295 K/uL (150-400); RED BLOOD CELL COUNT 4.87 M/uL (4.10-5.30); WHITE BLOOD CELL COUNT,WBC 12.88 K/uL (3.9-11.3)
[2022-12-22 06:32] LABS: BASOPHILS PERCENT AUTO 0.3 % (0.0-1.0); IMMATURE GRAN PERCENT AUTO 0.5 % (0.0-0.4); LYMPHOCYTES PERCENT AUTO 11.7 % (24.0-44.0); MONOCYTES PERCENT AUTO 2.2 % (0.0-8.0); NEUTROPHILS PERCENT AUTO 83.3 % (41.0-71.0)
[2022-12-22 06:33] LABS: BASOPHILS ABSOLUTE AUTO 0.04 K/uL (0.00-0.20); EOSINOPHILS ABSOLUTE AUTO 0.26 K/uL (0.00-0.45); IMMATURE GRAN ABSOLUTE AUTO 0.06 K/uL (0.00-0.05); LYMPHOCYTES ABSOLUTE AUTO 1.51 K/uL (1.00-4.80); MONOCYTES ABSOLUTE AUTO 0.28 K/uL (0.00-0.80); NEUTROPHILS ABSOLUTE AUTO 10.73 K/uL (1.80-7.70)
[2022-12-22 06:51] LABS: A/G RATIO 1.3 (0.9-1.6); ALBUMIN 4.5 g/dL (3.4-5.0); BILIRUBIN TOTAL 0.8 mg/dL (0.2-1.0); CALCIUM 9.4 mg/dL (8.5-10.1); CREATININE 0.9 mg/dL (0.6-1.0); EST CRCL DRUG DOSING (CG) 50.6 mL/min; POTASSIUM,K 4.1 mmol/L (3.5-5.1)
[2022-12-22 07:06] LABS: CORONAVIRUS COVID-19 NAA NEGATIVE (NEGATIVE)
[2022-12-22] MEDS ORDERED: Prochlorperazine 10 MG/2 ML SDV IVPUSH ONE (07:31)
[2022-12-22 07:32] VITALS: PULSE 63
[2022-12-22] MEDS ORDERED: Sodium Chloride 0.9% 500 ML IV SCH (07:45)
[2022-12-22 08:37] LABS: INFLUENZA A NAA NEGATIVE (NEGATIVE); INFLUENZA B NAA NEGATIVE (NEGATIVE)
[2022-12-22 08:55] VITALS: BP 181/76
== END 2022-12-22 09:12 | disposition home or self-care (01) ==
LOC: MW.ED 05:47
DX: R11.2 Nausea with vomiting, unspecified (principal); R50.9 Fever, unspecified; R51.9 Headache, unspecified; J02.9 Acute pharyngitis, unspecified; I10 Essential (primary) hypertension; E78.00 Pure hypercholesterolemia, unspecified; E11.9 Type 2 diabetes mellitus without complications; Z90.49 Acquired absence of other specified parts of digestive tract; Z88.0 Allergy status to penicillin; Z88.5 Allergy status to narcotic agent; Z88.8 Allergy status to other drugs, medicaments and biological substances; Z79.899 Other long term (current) drug therapy; Z79.82 Long term (current) use of aspirin; Z20.822 Contact with and (suspected) exposure to COVID-19
CPT/HCPCS: 36415; 80053; 83690; 85025; 87635; 96361; 96374; 96375; 99284; J0780; J1885; J2405; J7030; J7040; U0002

== ENCOUNTER 2022-12-26 11:32 | Emergency (ER) | payer BC ==
[2022-12-26] MEDS ORDERED: Sodium Chloride 0.9% 10 ML Syringe FLUSH PRN (12:17)
[2022-12-26] MEDS ORDERED: Sodium Chloride 0.9% 2.5 ML Syringe FLUSH PRN (12:17)
[2022-12-26] MEDS ORDERED: Sodium Chloride 0.9% 1,000 ML IV STA ×2 (12:18→13:19)
[2022-12-26 13:00] LABS: BASOPHILS ABSOLUTE AUTO 0.04 K/uL (0.00-0.20); BASOPHILS PERCENT AUTO 0.3 % (0.0-1.0); EOSINOPHILS ABSOLUTE AUTO 0.03 K/uL (0.00-0.45); EOSINOPHILS PERCENT AUTO 0.2 % (0.0-6.0); HEMATOCRIT 40.3 % (37.0-47.0); HEMOGLOBIN 14.5 g/dL (12.0-16.0); IMMATURE GRAN ABSOLUTE AUTO 0.03 K/uL (0.00-0.05); IMMATURE GRAN PERCENT AUTO 0.2 % (0.0-0.4); LYMPHOCYTES ABSOLUTE AUTO 2.65 K/uL (1.00-4.80); LYMPHOCYTES PERCENT AUTO 21.8 % (24.0-44.0); MEAN CORPUSCULAR HEMOGLOBIN 31.5 pg (28.0-32.0); MEAN CORPUSCULAR VOLUME 87.4 fL (83.0-99.0); MEAN PLATELET VOLUME 9.9 fL (9.4-12.3); MONOCYTES ABSOLUTE AUTO 1.17 K/uL (0.00-0.80); MONOCYTES PERCENT AUTO 9.6 % (0.0-8.0); NEUTROPHILS ABSOLUTE AUTO 8.21 K/uL (1.80-7.70); NEUTROPHILS PERCENT AUTO 67.9 % (41.0-71.0); PLATELET COUNT,PLT 304 K/uL (150-400); RED BLOOD CELL COUNT 4.61 M/uL (4.10-5.30); WHITE BLOOD CELL COUNT,WBC 12.13 K/uL (3.9-11.3)
[2022-12-26] MEDS ORDERED: Prochlorperazine 10 MG/2 ML SDV IVPUSH STA (13:03)
[2022-12-26] MEDS ORDERED: diphenhydrAMINE 50 MG/ML SDV IVPUSH STA (13:03)
[2022-12-26 13:14] LABS: A/G RATIO 1.2 (0.9-1.6); ALBUMIN 3.6 g/dL (3.4-5.0); CALCIUM 8.6 mg/dL (8.5-10.1); CREATININE 0.7 mg/dL (0.6-1.0); EST CRCL DRUG DOSING (CG) 65.06 mL/min; MAGNESIUM 1.6 mg/dL (1.8-2.4); POTASSIUM,K 4.3 mmol/L (3.5-5.1); PROTEIN TOTAL,TP 6.7 g/dL (6.4-8.2)
[2022-12-26] MEDS ORDERED: Magnesium Sulfate/Water 2 GM in Premix Bag 1 BAG IV STA (13:19)
[2022-12-26 13:52] LABS: APPEARANCE,URINE CLEAR; BILIRUBIN,URINE NEGATIVE (NEGATIVE); COLOR,URINE YELLOW; GLUCOSE,URINE NEGATIVE (NEGATIVE); KETONES,URINE >=80 mg/dL (NEGATIVE); LEUKOCYTE ESTERASE,URINE NEGATIVE (NEGATIVE); NITRITE,URINE NEGATIVE (NEGATIVE); OCCULT BLOOD,URINE NEGATIVE (NEGATIVE); PROTEIN,URINE NEGATIVE (NEGATIVE); UROBILINOGEN,URINE >=8.0 EU/dL (<2.0)
[2022-12-26 14:40] LABS: CORONAVIRUS COVID-19 NAA NEGATIVE (NEGATIVE); INFLUENZA A NAA NEGATIVE (NEGATIVE); INFLUENZA B NAA NEGATIVE (NEGATIVE)
[2022-12-26 16:01] VITALS: BP 105/51; PULSE 90
== END 2022-12-26 15:59 ==
LOC: MW.ED 11:32
DX: I21.4 Non-ST elevation (NSTEMI) myocardial infarction (principal); E87.1 Hypo-osmolality and hyponatremia; E83.42 Hypomagnesemia; I10 Essential (primary) hypertension; E78.00 Pure hypercholesterolemia, unspecified; E11.9 Type 2 diabetes mellitus without complications; Z88.8 Allergy status to other drugs, medicaments and biological substances; Z88.0 Allergy status to penicillin; Z88.5 Allergy status to narcotic agent; Z79.82 Long term (current) use of aspirin; Z79.899 Other long term (current) drug therapy; Z20.822 Contact with and (suspected) exposure to COVID-19
CPT/HCPCS: 0240U; 36415; 71046; 80053; 81003; 83690; 83735; 84484; 85025; 93005; 96361; 96365; 96375; 99284; J0780; J1200; J3475; J3490; J7030; 93010; 99285

== ENCOUNTER 2023-09-18 03:57 | Observation (INO) | payer BC ==
[2023-09-18 04:15] LABS: BASOPHILS ABSOLUTE AUTO 0.08 K/uL (0.00-0.20); BASOPHILS PERCENT AUTO 0.5 % (0.0-1.0); EOSINOPHILS ABSOLUTE AUTO 0.01 K/uL (0.00-0.45); EOSINOPHILS PERCENT AUTO 0.1 % (0.0-6.0); HEMATOCRIT 43.1 % (37.0-47.0); IMMATURE GRAN ABSOLUTE AUTO 0.05 K/uL (0.00-0.05); IMMATURE GRAN PERCENT AUTO 0.3 % (0.0-0.4); LYMPHOCYTES PERCENT AUTO 14.3 % (24.0-44.0); MEAN CORPUSCULAR HEMOGLOBIN 31.4 pg (28.0-32.0); MEAN CORPUSCULAR HGB CONC 34.8 g/dL (32.0-36.0); MEAN CORPUSCULAR VOLUME 90.2 fL (83.0-99.0); MEAN PLATELET VOLUME 11.3 fL (9.4-12.3); MONOCYTES ABSOLUTE AUTO 0.35 K/uL (0.00-0.80); MONOCYTES PERCENT AUTO 2.3 % (0.0-8.0); NEUTROPHILS ABSOLUTE AUTO 12.73 K/uL (1.80-7.70); NEUTROPHILS PERCENT AUTO 82.5 % (41.0-71.0); PLATELET COUNT,PLT 157 K/uL (150-400); RED BLOOD CELL COUNT 4.78 M/uL (4.10-5.30); WHITE BLOOD CELL COUNT,WBC 15.42 K/uL (3.9-11.3)
[2023-09-18] MEDS: Ondansetron 4 MG/2 ML SDV IVPUSH ONE ×2 (04:17→04:56)
[2023-09-18] MEDS: Sodium Chloride 0.9% 10 ML Syringe FLUSH PRN (04:18)
[2023-09-18] MEDS: Sodium Chloride 0.9% 2.5 ML Syringe FLUSH PRN (04:18)
[2023-09-18] MEDS: Lidocaine 4% 1 each Patch TOP STA (04:26)
[2023-09-18 04:41] LABS: A/G RATIO 1.4 (0.9-1.6); ALBUMIN 4.5 g/dL (3.4-5.0); BILIRUBIN TOTAL 0.6 mg/dL (0.2-1.0); CALCIUM 9.5 mg/dL (8.5-10.1); CARBON DIOXIDE,CO2 24.7 mmol/L (21.0-32.0); CREATININE 0.9 mg/dL (0.6-1.0); EST CRCL DRUG DOSING (CG) 49.95 mL/min; POTASSIUM,K 4.4 mmol/L (3.5-5.1); PROTEIN TOTAL,TP 7.8 g/dL (6.4-8.2)
[2023-09-18] MEDS: Sodium Chloride 0.9% 500 ML IV SCH (04:56)
[2023-09-18 04:58] LABS: CORONAVIRUS COVID-19 NAA NEGATIVE (NEGATIVE); INFLUENZA A NAA NEGATIVE (NEGATIVE); INFLUENZA B NAA NEGATIVE (NEGATIVE)
[2023-09-18] MEDS: Iopamidol 755 MG/ML 500 ML Multipack Bottle IVPUSH ONE (05:53)
[2023-09-18] MEDS: droPERidol 5 MG/2 ML SDV IVPUSH ONE (06:32)
[2023-09-18] MEDS ORDERED: Ondansetron 4 MG Tab PO ONE (08:19)
[2023-09-18] MEDS: Ondansetron 4 MG Tab.DIS PO ONE (08:27)
[2023-09-18] MEDS: Enoxaparin 100 MG/1 ML Syringe SUBCUT ONE (09:43)
[2023-09-18] MEDS ORDERED: hydrALAZINE 20 MG/ML SDV IVPUSH PRN (10:31)
[2023-09-18] MEDS ORDERED: Naloxone 0.4 MG/ML SDV IVPUSH PRN (12:25)
[2023-09-18] MEDS ORDERED: Promethazine 25 MG Tab PO PRN (12:25)
[2023-09-18] MEDS ORDERED: Sennosides/Docusate Sodium 50-8.6 MG Tab PO PRN (12:25)
[2023-09-18] MEDS ORDERED: Polyethylene Glycol 3350 Powder 17 GM Packet PO PRN (12:25)
[2023-09-18] MEDS ORDERED: Morphine 2 MG/ML SYRINGE IVPUSH PRN (12:25)
[2023-09-18] MEDS ORDERED: Acetaminophen/oxyCODONE 325-5 MG Tab PO PRN (12:25)
[2023-09-18] MEDS ORDERED: Propranolol 10 MG Tab PO PRN (12:29)
[2023-09-18] MEDS ORDERED: Glucagon,Human Recombinant 1 MG Vial IM PRN (12:32)
[2023-09-18] MEDS ORDERED: 50% Dextrose in Water 50 ML Syringe IVPUSH PRN (12:32)
[2023-09-18] MEDS: Cefepime 2 GM in Sodium Chloride 0.9% 50 ML IV ONE (12:46)
[2023-09-18] MEDS: metroNIDAZOLE/Normal Saline 500 MG in Premix Bag 1 BAG IV SCH (12:46)
[2023-09-18] MEDS: Escitalopram 10 MG Tab PO SCH (13:03)
[2023-09-18] MEDS: Pantoprazole 40 MG in Sodium Chloride 0.9% 10 ML IVPUSH SCH (13:04)
[2023-09-18 13:06] LABS: LACTIC ACID 3.8 mmol/L (0.4-2.0)
[2023-09-18] MEDS: Lactated Ringers 500 ML IV SCH (13:51)
[2023-09-18] MEDS: Metoprolol Succinate 25 MG Tab.ER PO SCH (16:27)
[2023-09-18] MEDS: Losartan 25 MG Tab PO SCH (16:27)
[2023-09-18] MEDS: Insulin Aspart 100 Units/ML 3 ML Pen SUBCUT SCH (16:27)
[2023-09-18] MEDS: Ondansetron 4 MG Tab.DIS PO PRN (17:01)
[2023-09-18] MEDS: Lactated Ringers 500 ML IV ONE (18:51)
[2023-09-18] MEDS: Cefepime 2 GM in Sodium Chloride 0.9% 50 ML IV SCH (20:51)
[2023-09-18] MEDS: Zolpidem 5 MG Tab PO SCH (21:31)
[2023-09-18] MEDS: Rosuvastatin 10 MG Tab PO SCH (21:31)
[2023-09-18] MEDS: Enoxaparin 100 MG/1 ML Syringe SUBCUT SCH (21:31)
[2023-09-18] MEDS: Amitriptyline 25 MG Tab PO SCH (21:32)
[2023-09-19 05:24] LABS: BASOPHILS ABSOLUTE AUTO 0.08 K/uL (0.00-0.20); BASOPHILS PERCENT AUTO 1.2 % (0.0-1.0); EOSINOPHILS ABSOLUTE AUTO 0.07 K/uL (0.00-0.45); HEMATOCRIT 39.3 % (37.0-47.0); HEMOGLOBIN 13.3 g/dL (12.0-16.0); IMMATURE GRAN ABSOLUTE AUTO 0.02 K/uL (0.00-0.05); IMMATURE GRAN PERCENT AUTO 0.3 % (0.0-0.4); LYMPHOCYTES ABSOLUTE AUTO 2.81 K/uL (1.00-4.80); LYMPHOCYTES PERCENT AUTO 41.8 % (24.0-44.0); MEAN CORPUSCULAR HEMOGLOBIN 31.4 pg (28.0-32.0); MEAN CORPUSCULAR HGB CONC 33.8 g/dL (32.0-36.0); MEAN CORPUSCULAR VOLUME 92.9 fL (83.0-99.0); MONOCYTES ABSOLUTE AUTO 0.53 K/uL (0.00-0.80); MONOCYTES PERCENT AUTO 7.9 % (0.0-8.0); NEUTROPHILS ABSOLUTE AUTO 3.22 K/uL (1.80-7.70); NEUTROPHILS PERCENT AUTO 47.8 % (41.0-71.0); PLATELET COUNT,PLT 228 K/uL (150-400); RED BLOOD CELL COUNT 4.23 M/uL (4.10-5.30); WHITE BLOOD CELL COUNT,WBC 6.73 K/uL (3.9-11.3)
[2023-09-19 05:57] LABS: A/G RATIO 1.2 (0.9-1.6); ALBUMIN 3.4 g/dL (3.4-5.0); BILIRUBIN TOTAL 0.4 mg/dL (0.2-1.0); CALCIUM 8.6 mg/dL (8.5-10.1); CARBON DIOXIDE,CO2 27.4 mmol/L (21.0-32.0); CREATININE 0.8 mg/dL (0.6-1.0); EST CRCL DRUG DOSING (CG) 56.19 mL/min; POTASSIUM,K 3.8 mmol/L (3.5-5.1); PROTEIN TOTAL,TP 6.2 g/dL (6.4-8.2)
[2023-09-19] MEDS: Acetaminophen 325 MG Tab PO PRN (07:17)
[2023-09-19 07:43] LABS: HEMOGLOBIN A1C 7.5 %
[2023-09-19] MEDS: Timolol Maleate 0.5% Ophth Soln 5 ML Bottle EYEBOTH SCH (09:11)
[2023-09-19 09:12] VITALS: PULSE 65
[2023-09-19 10:26] VITALS: BP 161/74
== END 2023-09-19 10:20 | disposition home or self-care (01) ==
LOC: MW.ED 03:57 → MW.ICU 09:36
PROVIDERS: ADMIT Family Medicine; ATTEND Family Medicine
DX: I21.4 Non-ST elevation (NSTEMI) myocardial infarction (principal); E11.9 Type 2 diabetes mellitus without complications; I10 Essential (primary) hypertension; E78.5 Hyperlipidemia, unspecified; I25.10 Atherosclerotic heart disease of native coronary artery without angina pectoris; Z79.82 Long term (current) use of aspirin; Z79.899 Other long term (current) drug therapy
CPT/HCPCS: 0240U; 36415; 71046; 74177; 80053; 80061; 82947; 83036; 83605; 83690; 84484; 85025; 87040; 93005; 93306; 96361; 96365; 96368; 96372; 96375; 96376; 99285; A9270; G0378; J0692; J1650; J1790; J1815; J1836; J2405; J2470; J3490; J7040; J7120; Q9967; 93010; 96374; 99284

== ENCOUNTER 2023-11-08 07:59 | Emergency (ER) | payer BC ==
[2023-11-08] MEDS ORDERED: Metoclopramide 10 MG/2 ML SDV IVPUSH ONE (08:18)
[2023-11-08] MEDS: Sodium Chloride 0.9% 1,000 ML IV ONE ×2 (09:03→11:11)
[2023-11-08] MEDS: fentaNYL 50 MCG/ML SDV IVPUSH ONE ×2 (09:04→11:11)
[2023-11-08] MEDS: Famotidine 20 MG/2 ML SDV IVPUSH ONE (09:06)
[2023-11-08] MEDS: droPERidol 5 MG/2 ML SDV IVPUSH ONE (09:07)
[2023-11-08 09:08] LABS: BASE EXCESS VENOUS -13.3 (-2.0-3.0); BASOPHILS ABSOLUTE AUTO 0.03 K/uL (0.00-0.20); BASOPHILS PERCENT AUTO 0.3 % (0.0-1.0); HEMATOCRIT 45.4 % (37.0-47.0); HEMOGLOBIN 15.9 g/dL (12.0-16.0); IMMATURE GRAN ABSOLUTE AUTO 0.05 K/uL (0.00-0.05); IMMATURE GRAN PERCENT AUTO 0.5 % (0.0-0.4); LYMPHOCYTES ABSOLUTE AUTO 1.97 K/uL (1.00-4.80); MEAN CORPUSCULAR VOLUME 91.3 fL (83.0-99.0); MEAN PLATELET VOLUME 9.6 fL (9.4-12.3); MONOCYTES ABSOLUTE AUTO 0.41 K/uL (0.00-0.80); MONOCYTES PERCENT AUTO 3.7 % (0.0-8.0); NEUTROPHILS ABSOLUTE AUTO 8.51 K/uL (1.80-7.70); NEUTROPHILS PERCENT AUTO 77.5 % (41.0-71.0); PH,VENOUS 7.27 (7.31-7.41); PLATELET COUNT,PLT 350 K/uL (150-400); RED BLOOD CELL COUNT 4.97 M/uL (4.10-5.30); WHITE BLOOD CELL COUNT,WBC 10.97 K/uL (3.9-11.3)
[2023-11-08 09:31] LABS: A/G RATIO 1.3 (0.9-1.6); ALBUMIN 4.4 g/dL (3.4-5.0); BILIRUBIN TOTAL 0.6 mg/dL (0.2-1.0); CALCIUM 9.6 mg/dL (8.5-10.1); CARBON DIOXIDE,CO2 14.4 mmol/L (21.0-32.0); EST CRCL DRUG DOSING (CG) 44.95 mL/min; POTASSIUM,K 4.2 mmol/L (3.5-5.1); PROTEIN TOTAL,TP 7.9 g/dL (6.4-8.2)
[2023-11-08] MEDS: Iopamidol 755 Mg/ML 100 ML Bottle IVPUSH ONE (10:18)
[2023-11-08 10:30] LABS: APPEARANCE,URINE CLEAR; COLOR,URINE YELLOW; GLUCOSE,URINE >=1000 mg/dL (NEGATIVE); KETONES,URINE >=80 mg/dL (NEGATIVE); LEUKOCYTE ESTERASE,URINE NEGATIVE (NEGATIVE); NITRITE,URINE NEGATIVE (NEGATIVE); OCCULT BLOOD,URINE TRACE-INTACT (NEGATIVE); PH,URINE 5.5 (5.0-8.0); PROTEIN,URINE TRACE mg/dL (NEGATIVE); UROBILINOGEN,URINE 0.2 EU/dL (<2.0)
[2023-11-08 10:32] LABS: BILIRUBIN,URINE SMALL (NEGATIVE)
[2023-11-08 10:39] LABS: EPITHELIAL CELLS,URINE FEW (NONE-FEW); RBC,URINE 0-1 (0-2/HPF); WBC,URINE 0-1 (0-5/HPF)
[2023-11-08 10:40] LABS: BACTERIA,URINE FEW (NEGATIVE)
[2023-11-08] MEDS: Sodium Chloride 0.9% 2.5 ML Syringe FLUSH PRN (11:11)
[2023-11-08] MEDS: Prochlorperazine 10 MG/2 ML SDV IVPUSH ONE (11:11)
[2023-11-08] MEDS: Sodium Chloride 0.9% 10 ML Syringe FLUSH PRN (11:14)
[2023-11-08 12:59] VITALS: BP 124/52; PULSE 89
== END 2023-11-08 12:58 | disposition home or self-care (01) ==
LOC: MW.ED 07:59
DX: K80.20 Calculus of gallbladder without cholecystitis without obstruction (principal); I10 Essential (primary) hypertension; E78.00 Pure hypercholesterolemia, unspecified; E11.9 Type 2 diabetes mellitus without complications; Z90.49 Acquired absence of other specified parts of digestive tract; Z90.710 Acquired absence of both cervix and uterus; Z75.8 Other problems related to medical facilities and other health care; Z79.899 Other long term (current) drug therapy; Z79.84 Long term (current) use of oral hypoglycemic drugs; Z79.82 Long term (current) use of aspirin; Z88.0 Allergy status to penicillin; Z88.5 Allergy status to narcotic agent; Z88.8 Allergy status to other drugs, medicaments and biological substances
CPT/HCPCS: 36415; 74177; 76705; 80053; 81001; 82803; 83690; 85025; 96361; 96374; 96375; 96376; 99284; J0780; J1790; J3010; J3490; J7030; Q9967

== ENCOUNTER 2025-01-26 07:38 | Emergency (ER) | payer MEDICARE, BC ==
[2025-01-26] MEDS ORDERED: Sodium Chloride 0.9% 2.5 ML Syringe FLUSH PRN (07:44)
[2025-01-26] MEDS ORDERED: Sodium Chloride 0.9% 10 ML Syringe FLUSH PRN (07:44)
[2025-01-26] MEDS: Ondansetron 4 MG/2 ML SDV IVPUSH ONE (08:02)
[2025-01-26] MEDS: Pantoprazole 40 MG in Sodium Chloride 0.9% 10 ML IVPUSH ONE (08:02)
[2025-01-26 08:03] LABS: BASOPHILS ABSOLUTE AUTO 0.06 K/uL (0.00-0.20); BASOPHILS PERCENT AUTO 0.5 % (0.0-1.0); EOSINOPHILS ABSOLUTE AUTO 0.01 K/uL (0.00-0.45); EOSINOPHILS PERCENT AUTO 0.1 % (0.0-6.0); IMMATURE GRAN ABSOLUTE AUTO 0.04 K/uL (0.00-0.05); IMMATURE GRAN PERCENT AUTO 0.3 % (0.0-0.4); LYMPHOCYTES ABSOLUTE AUTO 2.47 K/uL (1.00-4.80); LYMPHOCYTES PERCENT AUTO 21.1 % (24.0-44.0); MEAN PLATELET VOLUME 9.8 fL (9.4-12.3); MONOCYTES ABSOLUTE AUTO 0.59 K/uL (0.00-0.80); MONOCYTES PERCENT AUTO 5.0 % (0.0-8.0); NEUTROPHILS ABSOLUTE AUTO 8.56 K/uL (1.80-7.70); NEUTROPHILS PERCENT AUTO 73.0 % (41.0-71.0); NRBC ABSOLUTE 0.00 K/uL (0.00-0.02); NRBC PERCENT 0.0 /100WBC (0.0-0.2); PLATELET COUNT,PLT 283 K/uL (150-400); RED BLOOD CELL COUNT 5.44 M/uL (4.10-5.30); WHITE BLOOD CELL COUNT,WBC 11.73 K/uL (3.9-11.3)
[2025-01-26 08:14] LABS: INR 1.01 (0.86-1.11)
[2025-01-26 08:23] LABS: A/G RATIO 1.1 (0.9-1.6); ALANINE AMINOTRANSFERASE,ALT 66.0 IU/L (14-63); ASPARTATE AMNIOTRANSFERASE,AST 43.0 IU/L (15-37); BILIRUBIN TOTAL 1.1 mg/dL (0.2-1.0); BLOOD UREA NITROGEN,BUN 17.0 mg/dL (7.0-18.0); CARBON DIOXIDE,CO2 15.4 mmol/L (21.0-32.0); CHLORIDE,CL 95.0 mmol/L (98-107); CREATININE 0.9 mg/dL (0.6-1.0); EST CRCL DRUG DOSING (CG) 49.29 mL/min; ESTIMATED GFR 71.0 mL/min (>60); GLUCOSE RANDOM 175.0 mg/dL (74-106); POTASSIUM,K 5.5 mmol/L (3.5-5.1); PROTEIN TOTAL,TP 8.1 g/dL (6.4-8.2); SODIUM,NA 131.0 mmol/L (136-145)
[2025-01-26] MEDS: Iopamidol 755 Mg/ML 100 ML Bottle IVPUSH ONE (08:53)
[2025-01-26 10:31] LABS: BLOOD UREA NITROGEN,BUN 16.0 mg/dL (7.0-18.0); CARBON DIOXIDE,CO2 15.4 mmol/L (21.0-32.0); CHLORIDE,CL 99.0 mmol/L (98-107); CREATININE 0.7 mg/dL (0.6-1.0); EST CRCL DRUG DOSING (CG) 63.37 mL/min; ESTIMATED GFR 96.0 mL/min (>60); GLUCOSE RANDOM 128.0 mg/dL (74-106); POTASSIUM,K 4.9 mmol/L (3.5-5.1); SODIUM,NA 133.0 mmol/L (136-145)
[2025-01-26 10:35] LABS: APPEARANCE,URINE CLEAR; GLUCOSE,URINE 500 mg/dL (NEGATIVE); OCCULT BLOOD,URINE TRACE-INTACT (NEGATIVE)
[2025-01-26 11:07] LABS: EPITHELIAL CELLS,URINE RARE (NONE-FEW)
[2025-01-26 11:50] VITALS: BP 173/74; PULSE 81
== END 2025-01-26 11:49 | disposition home or self-care (01) ==
LOC: MW.ED 07:38
DX: A08.4 Viral intestinal infection, unspecified (principal); R63.0 Anorexia; E87.8 Other disorders of electrolyte and fluid balance, not elsewhere classified; R74.8 Abnormal levels of other serum enzymes; I10 Essential (primary) hypertension; E78.00 Pure hypercholesterolemia, unspecified; E11.9 Type 2 diabetes mellitus without complications; Z90.710 Acquired absence of both cervix and uterus; Z79.899 Other long term (current) drug therapy; Z79.82 Long term (current) use of aspirin; Z88.0 Allergy status to penicillin; Z88.5 Allergy status to narcotic agent; Z88.8 Allergy status to other drugs, medicaments and biological substances; Z98.84 Bariatric surgery status
CPT/HCPCS: 36415; 74177; 80048; 80053; 81001; 83036; 83605; 83690; 83735; 85025; 85610; 93005; 96361; 96374; 96375; 99284; J2405; J2470; J7030; Q9967; 99283